=== PATIENT | male | born 1960 | race Caucasian/White ===

== ENCOUNTER 2017-11-01 11:12 | Day surgery (SDC) | payer OTHER ==
[~2017-11-01 11:12] MED LIST: Lactated Ringers 1,000 ML IV SCH; Lidocaine 2% 5 ML SDV ONE; Midazolam 1 MG/ML 2 ML SDV ONE; Ondansetron 4 MG/2 ML SDV ONE; Propofol 200 MG/20 ML SDV ONE; ceFAZolin 2 GM in Premix Bag 1 BAG IV ONE; fentaNYL 100 MCG/2 ML SDV ONE
--- NOTE | 2017-11-01 11:39 | PCM.PREANE ---
Preanesthetic Assessment - Anesthesia/Transfusion/Family Hx Anesthesia History: Prior Anesthesia Without Reaction Family History of Anesthesia Reaction: No Transfusion History: No Prior Transfusion(s) - Review of Systems General: No Symptoms Pulmonary: No Symptoms Cardiovascular: No Symptoms Gastrointestinal: No Symptoms Neurological: No Symptoms Other: Reports: None - Physical Assessment NPO Status Date: 10/31/17 O2 Sat by Pulse Oximetry: 95 Respiratory Rate: 16 Vital Signs: Last Vital Signs Temp 36.5 C 11/01/17 11:29 Pulse 62 11/01/17 11:29 Resp 16 11/01/17 11:29 BP 127/91 H 11/01/17 11:29 Pulse Ox 95 11/01/17 11:29 Height: 1.88 m Weight: 111.13 kg ASA Class: 2 Mental Status: Alert & Oriented x3 Airway Class: Mallampati = 1 Dentition: Reports: Partial ROM/Head Extension: Full Lungs: Clear to Auscultation, Normal Respiratory Effort Cardiovascular: Regular Rate, Regular Rhythm - Allergies Allergies/Adverse Reactions: Allergies Allergy/AdvReac Type Severity Reaction Status Date / Time No Known Allergies Allergy Verified 10/29/17 14:04 - Anesthesia Plan Pre-Op Medication Ordered: None - Acknowledgements Anesthesia Type Planned: MAC Pt an Appropriate Candidate for the Planned Anesthesia: Yes Alternatives and Risks of Anesthesia Discussed w Pt/Guardian: Yes Pt/Guardian Understands and Agrees with Anesthesia Plan: Yes Additional Comments: PMH: on stevie;ofen for knee spasms, Lipoma is on posterior scalp PLAN: if MAC - keep FIO2 at or < 30% to reduce fire risk. PreAnesthesia Questionnaire HEENT History: Reports: Other (See Below) Other HEENT History: wears glasses Cardiovascular History: Reports: None Respiratory History: Reports: None Gastrointestinal History: Reports: None Genitourinary History: Reports: None Musculoskeletal History: Reports: Arthritis, Back Pain, Chronic, Fracture Other Musculoskeletal History: hx of fx left wrist and ankles Neurological History: Reports: Concussion Psychiatric History: Reports: None Endocrine/Metabolic History: Reports: Obesity/BMI 30+ Hematologic History: Reports: None Immunologic History: Reports: None Oncologic (Cancer) History: Reports: None Dermatologic History: Reports: None - Past Surgical History Head Surgeries/Procedures: Reports: None - SUBSTANCE USE Smoking Status *Q: Never Smoker Recreational Drug Use History: No - HOME MEDS Home Medications: Home Meds Baclofen 20 mg PO BID 10/29/17 [History] Diclofenac Sodium [Voltaren] 50 mg PO TID 10/29/17 [History] - CURRENT (IN HOUSE) MEDS Current Meds: Current Medications Lactated Ringer's (Ringers, Lactated) 1,000 mls @ 125 mls/hr IV ASDIRECTED AKBAR Last Admin: 11/01/17 11:34 Dose: 125 mls/hr Discontinued Medications Fentanyl (Sublimaze) Confirm Administered Dose 100 mcg .ROUTE .STK-MED ONE Stop: 11/01/17 10:38 Cefazolin Sodium/Dextrose 2 gm (/ Premix) 50 mls @ 100 mls/hr IV ONETIME ONE Stop: 11/01/17 05:29 Lidocaine (Xylocaine-Mpf 2%) Confirm Administered Dose 5 ml .ROUTE .STK-MED ONE Stop: 11/01/17 10:37 Midazolam HCl (Versed 1 Mg/Ml) Confirm Administered Dose 2 mg .ROUTE .STK-MED ONE Stop: 11/01/17 10:37 Ondansetron HCl (Zofran) Confirm Administered Dose 4 mg .ROUTE .STK-MED ONE Stop: 11/01/17 10:37 Propofol (Diprivan 20 Ml) Confirm Administered Dose 200 mg .ROUTE .STK-MED ONE Stop: 11/01/17 10:37
[2017-11-01] MEDS ORDERED: Bupivacaine 25%/EPINEPHrine/PF 30 ML ONE (11:57)
[2017-11-01] MEDS ORDERED: Acetaminophen/oxyCODONE 325-5 MG Tab PO PRN (11:58)
[2017-11-01] MEDS ORDERED: Sodium Chloride 0.9% 20 ML ONE (12:14)
[2017-11-01] MEDS ORDERED: ceFAZolin 1 GM Vial ONE (12:14)
[2017-11-01] MEDS ORDERED: Glycopyrrolate 0.2 MG/ML SDV ONE ×2 (12:25→12:34)
[2017-11-01] MEDS ORDERED: ePHEDrine 50 MG/ML SDV ONE (12:26)
[2017-11-01] MEDS ORDERED: Propofol 200 MG/20 ML SDV ONE (12:34)
--- NOTE | 2017-11-01 12:59 | PCM.OPNOTE ---
- General Post-Op/Procedure Note Date of Surgery/Procedure: 11/01/17 Operative Procedure(s): excisional biopsy head mass Findings: lipomer, excised at back of head; [id number] Pre Op Diagnosis: head mass Post-Op Diagnosis: Same Anesthesia Technique: Local, MAC Primary Surgeon: Hood Mansfield Pathology: head mass Complications: None Condition: Good
--- NOTE | 2017-11-01 13:48 | PCM.POSTAN ---
POST ANESTHESIA ASSESSMENT - MENTAL STATUS Mental Status: Alert, Oriented - VITAL SIGNS SaO2: 92 (Rm air) - RESPIRATORY Respiratory Status: Respiratory Rate WNL, Airway Patent, O2 Saturation Stable - CARDIOVASCULAR CV Status: Pulse Rate WNL, Blood Pressure Stable - GASTROINTESTINAL GI Status: No Symptoms - POST OP HYDRATION Hydration Status: Adequate & Stable
--- NOTE | 2017-11-01 14:19 | PCM48HPAN ---
Post Anesthesia Note - EVALUATION WITHIN 48HRS OF ANESTHETIC Vital Signs in Normal Range: Yes Patient Participated in Evaluation: Yes Respiratory Function Stable: Yes Airway Patent: Yes Cardiovascular Function Stable: Yes Hydration Status Stable: Yes Pain Control Satisfactory: Yes Nausea and Vomiting Control Satisfactory: Yes Mental Status Recovered: Yes Resp Rate: 14
--- NOTE | 2017-11-01 14:47 | OR ---
SURGEON: Hood Mansfield MD DATE OF PROCEDURE: 11/01/2017 PREOPERATIVE DIAGNOSIS: Scalp mass. POSTOPERATIVE DIAGNOSIS: Scalp mass. PROCEDURE PERFORMED: Excisional biopsy. COMPLICATIONS: None. FINDINGS: A well-encapsulated lipoma. PROCEDURE IN DETAIL: The patient was taken to operating room, placed in the supine position, and then subsequent repositioned into right decubitus position, right side down and left side up and the patient was then given a mild general sedation and the scalp area has been shaved. The mass is right just above the neck base and right in the middle of the posterior part of the head and local anesthetic infiltrated and using a skin scalpel, a fish-mouth incision over the mass was made including the skin and the whole thing was excised and sent for pathology as a lipoma, well encapsulated. Skin incision was transverse, 7.5 cm. Good hemostasis achieved by use of electrocautery. Wound was closed with 3-0 running Ethilon simple interrupted 4-0 appropriate dressing. Patient was awaken and transferred to recovery room in hemodynamically stable condition. The patient tolerated the procedure well. There were no intraoperative complications. MARQUES / CARRINGTON /[id number] SHELDON
--- NOTE | 2017-11-14 14:11 | OR ---
SURGEON: Hood Mansfield MD DATE OF PROCEDURE: 11/01/2017 ADDENDUM: The mass excision is 8 x 2 cm while the skin incision is similar 8 x 2.5 cm. MARQUES / CARRINGTON /[id number]
== END 2017-11-01 15:32 | disposition home or self-care (01) ==
LOC: MW.SDS 11:12
PROVIDERS: ATTEND Surgery
DX: D17.0 Benign lipomatous neoplasm of skin and subcutaneous tissue of head, face and neck (principal); E66.9 Obesity, unspecified; Z68.31 Body mass index [BMI] 31.0-31.9, adult; M19.90 Unspecified osteoarthritis, unspecified site; Z79.899 Other long term (current) drug therapy
CPT/HCPCS: 11426; 88304; A9270; J0690; J2250; J2405; J2704; J3010; J3490; J7120; 00300

== ENCOUNTER 2019-12-19 15:27 | Inpatient (IN) | payer OTHER ==
[2019-12-19] MEDS ORDERED: Sodium Chloride 0.9% 10 ML Syringe FLUSH PRN (16:00)
--- NOTE | 2019-12-19 16:14 | EDM.PDOC ---
ED HPI GENERAL MEDICAL PROBLEM - General Chief Complaint: Cardiovascular Problem Stated Complaint: SHORTNESS OF BREATH Time Seen by Provider: 12/19/19 15:50 Source of Information: Reports: Patient History Limitations: Reports: No Limitations - History of Present Illness INITIAL COMMENTS - FREE TEXT/NARRATIVE: HISTORY AND PHYSICAL: History of present illness: Patient is a 59-year-old male who presents to the emergency room with complaints of fevers, chills, shortness of breath and cough x2 days. He also has concerns of a "infection on my penis". States he has pain to the meatus of his penis with a large sore, denies any discharge or drainage. He had some irritation to the bilateral groin as well, which he has been using OTC cream without relief. Patient denies any headache, change in vision, syncope or near syncope. Denies any chest pain, back pain, abdominal pain, nausea, vomiting, diarrhea, constipation or dysuria. Has not noted any blood in urine or stool. Patient has been eating and drinking appropriately. Review of systems: As per history of present illness and below otherwise all systems reviewed and negative. Past medical history: As per history of present illness and as reviewed below otherwise noncontributory. Surgical history: As per history of present illness and as reviewed below otherwise noncontributory. Social history: See social history for further information Family history: As per history of present illness and as reviewed below otherwise noncontributory. Physical exam: General: Well developed and well nourished. Alert and orientated x 3. Nontoxic in appearance and in no acute distress. Vital signs are stable and have been reviewed by me. Nursing notes were reviewed. HEENT: Atraumatic, normocephalic, pupils equal and reactive bilaterally, negative for conjunctival pallor or scleral icterus, mucous membranes moist, TMs normal bilaterally, throat clear, neck supple, nontender, trachea midline. No drooling or trismus noted. No meningeal signs. No hot potato voice noted. Lungs: Clear to auscultation, breath sounds equal bilaterally, chest nontender. Normal work of breathing, no accessory muscles used. Heart: S1S2, regular rate and rhythm without overt murmur Abdomen: Soft, nondistended, nontender. Negative for masses or hepatosplenomegaly. Negative for costovertebral tenderness. Pelvis: Stable nontender. Genitourinary: This was done with consent and a kaiako kura kaupapa maori at the bedside. + Circumcised. The meatus appears inflamed and painful to touch. Approx 5 mm area of localized redness (non-rasised) to top of meatus. Skin: See above. Remaining skin is intact, warm, dry. No other lesions or rashes noted. Hematologic: No petechiae or purpra. Mucosa appropriate color and normal nail bed color and refill. Extremities: Atraumatic, moves all extremities per self without difficulty or deficits, negative for cords or calf pain. Neurovascular unremarkable. Neuro: Awake, alert, oriented. Cranial nerves II through XII unremarkable. Cerebellum unremarkable. Motor and sensory unremarkable throughout. Exam nonfocal. Psychiatric: Mood and affect are appropriate. Normal thought process. Answering questions appropriately. Notes: Increased soft tissue density in the right peritracheal region. The lungs demonstrate mild patchy opacity at the right lung base which could be due to atelectasis or infection. Radiology does consider a CT of the chest for further evaluation of those findings. I did talk with Dr. Estes about this patient. Will admit for observation. We will do a CT of the neck and chest due to the x- ray report. CT shows multiple patchy round areas of groundglass infiltrates consistent with COVID-19 infection most prominent in the lower lobes bilaterally. No sign of any lymphadenopathy or pleural effusion. Diagnostics: CBC, CMP, COVID, Lactate, BC x 2, CXR, D.Dimer, Therapeutics: IV fluids, Tylenol, Lotrimin topical Impression: Balanitis COVID- 19 Plan: Observation admission Definitive disposition and diagnosis as appropriate pending reevaluation and review of above. Penis Pain Score (Numeric/FACES): 8 - Related Data Allergies Allergy/AdvReac Type Severity Reaction Status Date / Time No Known Allergies Allergy Verified 12/19/19 15:54 Home Meds: Home Meds . [No Known Home Meds] 12/19/19 [History] Past Medical History HEENT History: Reports: Other (See Below) Other HEENT History: wears glasses Cardiovascular History: Reports: None Respiratory History: Reports: None Gastrointestinal History: Reports: None Genitourinary History: Reports: None Musculoskeletal History: Reports: Arthritis, Back Pain, Chronic, Fracture Other Musculoskeletal History: hx of fx left wrist and ankles Neurological History: Reports: Concussion Psychiatric History: Reports: None Endocrine/Metabolic History: Reports: Obesity/BMI 30+ Hematologic History: Reports: None Immunologic History: Reports: None Oncologic (Cancer) History: Reports: None Dermatologic History: Reports: None - Infectious Disease History Infectious Disease History: Reports: None - Past Surgical History Head Surgeries/Procedures: Reports: None Social & Family History - Family History Family Medical History: Noncontributory - Tobacco Use Tobacco Use Status *Q: Never Tobacco User - Caffeine Use Caffeine Use: Reports: Coffee ED ROS GENERAL - Review of Systems Review Of Systems: Comprehensive ROS is negative, except as noted in HPI. ED EXAM, GENERAL - Physical Exam Exam: See Below (See dictation) Course - Vital Signs Last Recorded V/S: Last Vital Signs Temp 96.6 F L 12/19/19 18:12 Pulse 61 12/19/19 18:12 Resp 16 12/19/19 18:12 BP 129/83 12/19/19 18:12 Pulse Ox 94 L 12/19/19 18:12 - Orders/Labs/Meds Orders: Active Orders 24 hr Category Date Time Status Admission Status [Patient Status] [ADT] Stat ADT 12/19/19 20:40 Ordered Communication Order [RC] BID Care 12/19/19 19:00 Active CHLAMYDIA AND GONORRHEA BY TMA Stat Lab 12/19/19 18:06 Received CULTURE BLOOD [BC] Stat Lab 12/19/19 16:14 Received CULTURE BLOOD [BC] Stat Lab 12/19/19 16:24 Received Clotrimazole [Lotrimin AF 1% Crm] Med 12/19/19 21:00 Active See Dose Instructions TOP BID Sodium Chloride 0.9% [Saline Flush] Med 12/19/19 16:00 Active 10 ml FLUSH ASDIRECTED PRN Sodium Chloride 0.9% [Saline Flush] Med 12/19/19 16:00 Active 2.5 ml FLUSH ASDIRECTED PRN Blood Culture x2 Reflex Set [OM.PC] Stat Oth 12/19/19 16:00 Ordered Saline Lock Insert [OM.PC] Stat Oth 12/19/19 16:00 Ordered Medication Orders Clotrimazole (Lotrimin Af 1% Crm) 0 gm TOP BID AKBAR Sodium Chloride (Saline Flush) 10 ml FLUSH ASDIRECTED PRN PRN Reason: Keep Vein Open Last Admin: 12/19/19 16:33 Dose: 10 ml Documented by: [email or web address] Sodium Chloride (Saline Flush) 2.5 ml FLUSH ASDIRECTED PRN PRN Reason: Keep Vein Open Last Admin: 12/19/19 16:33 Dose: 2.5 ml Documented by: [email or web address] Labs: Laboratory Tests 12/19/19 12/19/19 12/19/19 Range/Units 15:41 15:41 15:41 WBC 3.71 L (4.0-11.0) K/uL RBC 5.17 (4.50-5.90) M/uL Hgb 16.7 (13.0-17.0) g/dL Hct 48.2 (38.0-50.0) % MCV 93.2 (80.0-98.0) fL MCH 32.3 H (27.0-32.0) pg MCHC 34.6 (31.0-37.0) g/dL RDW Std Deviation 46.1 (28.0-62.0) fl RDW Coeff of Timothy 13 (11.0-15.0) % Plt Count 96 L (150-400) K/uL MPV 11.90 (7.40-12.00) fL Neut % (Auto) 56.2 (48.0-80.0) % Lymph % (Auto) 33.2 (16.0-40.0) % Starr % (Auto) 10.0 (0.0-15.0) % Eos % (Auto) 0.3 (0.0-7.0) % Baso % (Auto) 0.3 (0.0-1.5) % Neut # (Auto) 2.1 (1.4-5.7) K/uL Lymph # (Auto) 1.2 (0.6-2.4) K/uL Starr # (Auto) 0.4 (0.0-0.8) K/uL Eos # (Auto) 0.0 (0.0-0.7) K/uL Baso # (Auto) 0.0 (0.0-0.1) K/uL Nucleated RBC % 0.0 /100WBC Nucleated RBCs # 0 K/uL D-Dimer, Quantitative (0.0-0.50) mg/L FEU Lactate 1.0 (0.20-2.00) mmol/L Sodium 138 (136-148) mmol/L Potassium 3.7 (3.5-5.1) mmol/L Chloride 100 (98-107) mmol/L Carbon Dioxide 26.1 (21.0-32.0) mmol/L BUN 15 (7.0-18.0) mg/dL Creatinine 1.2 (0.8-1.3) mg/dL Est Cr Clr Drug Dosing 75.16 mL/min Estimated GFR (MDRD) > 60.0 ml/min Glucose 88 (74-106) mg/dL Calcium 8.7 (8.5-10.1) mg/dL Total Bilirubin 1.1 H (0.2-1.0) mg/dL AST 41 H (15-37) IU/L ALT 107 H (14-63) IU/L Alkaline Phosphatase 62 (46-116) U/L Total Protein 8.1 (6.4-8.2) g/dL Albumin 4.2 (3.4-5.0) g/dL Globulin 3.9 (2.6-4.0) g/dL Albumin/Globulin Ratio 1.1 (0.9-1.6) TSH 3rd Generation 1.54 (0.36-3.74) uIU/mL Urine Color Urine Appearance Urine pH (5.0-8.0) Ur Specific Dixon (1.001-1.035) Urine Protein (NEGATIVE) mg/dL Urine Glucose (UA) (NEGATIVE) mg/dL Urine Ketones (NEGATIVE) mg/dL Urine Occult Blood (NEGATIVE) Urine Nitrite (NEGATIVE) Urine Bilirubin (NEGATIVE) Urine Urobilinogen (<2.0) EU/dL Ur Leukocyte Esterase (NEGATIVE) Urine RBC (0-2/HPF) Urine WBC (0-5/HPF) Ur Epithelial Cells (NONE-FEW) Urine Bacteria (NEGATIVE) SARS-CoV-2 RNA (EMILY) (NEGATIVE) 12/19/19 12/19/19 12/19/19 Range/Units 15:41 16:42 18:06 WBC (4.0-11.0) K/uL RBC (4.50-5.90) M/uL Hgb (13.0-17.0) g/dL Hct (38.0-50.0) % MCV (80.0-98.0) fL MCH (27.0-32.0) pg MCHC (31.0-37.0) g/dL RDW Std Deviation (28.0-62.0) fl RDW Coeff of Timothy (11.0-15.0) % Plt Count (150-400) K/uL MPV (7.40-12.00) fL Neut % (Auto) (48.0-80.0) % Lymph % (Auto) (16.0-40.0) % Starr % (Auto) (0.0-15.0) % Eos % (Auto) (0.0-7.0) % Baso % (Auto) (0.0-1.5) % Neut # (Auto) (1.4-5.7) K/uL Lymph # (Auto) (0.6-2.4) K/uL Starr # (Auto) (0.0-0.8) K/uL Eos # (Auto) (0.0-0.7) K/uL Baso # (Auto) (0.0-0.1) K/uL Nucleated RBC % /100WBC Nucleated RBCs # K/uL D-Dimer, Quantitative 0.41 (0.0-0.50) mg/L FEU Lactate (0.20-2.00) mmol/L Sodium (136-148) mmol/L Potassium (3.5-5.1) mmol/L Chloride (98-107) mmol/L Carbon Dioxide (21.0-32.0) mmol/L BUN (7.0-18.0) mg/dL Creatinine (0.8-1.3) mg/dL Est Cr Clr Drug Dosing mL/min Estimated GFR (MDRD) ml/min Glucose (74-106) mg/dL Calcium (8.5-10.1) mg/dL Total Bilirubin (0.2-1.0) mg/dL AST (15-37) IU/L ALT (14-63) IU/L Alkaline Phosphatase (46-116) U/L Total Protein (6.4-8.2) g/dL Albumin (3.4-5.0) g/dL Globulin (2.6-4.0) g/dL Albumin/Globulin Ratio (0.9-1.6) TSH 3rd Generation (0.36-3.74) uIU/mL Urine Color YELLOW Urine Appearance HAZY Urine pH 6.0 (5.0-8.0) Ur Specific Dixon 1.025 (1.001-1.035) Urine Protein 30 H (NEGATIVE) mg/dL Urine Glucose (UA) NEGATIVE (NEGATIVE) mg/dL Urine Ketones NEGATIVE (NEGATIVE) mg/dL Urine Occult Blood TRACE-INTACT H (NEGATIVE) Urine Nitrite NEGATIVE (NEGATIVE) Urine Bilirubin NEGATIVE (NEGATIVE) Urine Urobilinogen 4.0 H (<2.0) EU/dL Ur Leukocyte Esterase NEGATIVE (NEGATIVE) Urine RBC 0-1 (0-2/HPF) Urine WBC 0-1 (0-5/HPF) Ur Epithelial Cells RARE (NONE-FEW) Urine Bacteria RARE (NEGATIVE) SARS-CoV-2 RNA (EMILY) POSITIVE H (NEGATIVE) Meds: Medications Generic Name Dose Route Start Last Admin Trade Name Freq PRN Reason Stop Dose Admin Clotrimazole 0 gm 12/19/19 21:00 Lotrimin Af 1% Crm TOP BID AKBAR Sodium Chloride 10 ml 12/19/19 16:00 12/19/19 16:33 Saline Flush FLUSH 10 ml ASDIRECTED PRN Administration Keep Vein Open Sodium Chloride 2.5 ml 12/19/19 16:00 12/19/19 16:33 Saline Flush FLUSH 2.5 ml ASDIRECTED PRN Administration Keep Vein Open Discontinued Medications Generic Name Dose Route Start Last Admin Trade Name Freq PRN Reason Stop Dose Admin Acetaminophen 1,000 mg 12/19/19 16:35 12/19/19 16:39 Tylenol Extra Strength PO 12/19/19 16:36 1,000 mg ONETIME ONE Administration Betamethasone/Clotrimazole 1 gm 12/19/19 17:54 12/19/19 18:08 Lotrisone TOP 12/19/19 17:55 1 gm NOW STA Administration Clotrimazole 1 gm 12/19/19 17:38 12/19/19 17:53 Lotrimin Af 1% Crm TOP 12/19/19 17:39 Not Given NOW STA Iopamidol 100 ml 12/19/19 19:23 12/19/19 19:24 Isovue Multipack-370 (76%) IVPUSH 12/19/19 19:24 100 ml ONETIME ONE Administration Departure - Departure Time of Disposition: 20:42 Disposition: Refer to Observation Clinical Impression: COVID-19, Balanitis Referrals: PCP,None [Primary Care Provider] - Forms: ED Department Discharge Sepsis Event Note (ED) - Evaluation Sepsis Screening Result: No Definite Risk - Focused Exam Vital Signs: Vital Signs Temp Temp Pulse Resp BP Pulse Ox 12/19/19 18:12 96.6 F L 61 16 129/83 94 L 12/19/19 17:09 100.0 F 12/19/19 15:54 101.1 F H 87 20 147/95 H 95 - My Orders Last 24 Hours: My Active Orders 12/19/19 16:00 Sodium Chloride 0.9% [Saline Flush] 10 ml FLUSH ASDIRECTED PRN Sodium Chloride 0.9% [Saline Flush] 2.5 ml FLUSH ASDIRECTED PRN Blood Culture x2 Reflex Set [OM.PC] Stat Saline Lock Insert [OM.PC] Stat 12/19/19 16:14 CULTURE BLOOD [BC] Stat 12/19/19 16:24 CULTURE BLOOD [BC] Stat 12/19/19 18:06 CHLAMYDIA AND GONORRHEA BY TMA Stat 12/19/19 20:40 Admission Status [Patient Status] [ADT] Stat - Assessment/Plan Last 24 Hours: My Active Orders 12/19/19 16:00 Sodium Chloride 0.9% [Saline Flush] 10 ml FLUSH ASDIRECTED PRN Sodium Chloride 0.9% [Saline Flush] 2.5 ml FLUSH ASDIRECTED PRN Blood Culture x2 Reflex Set [OM.PC] Stat Saline Lock Insert [OM.PC] Stat 12/19/19 16:14 CULTURE BLOOD [BC] Stat 12/19/19 16:24 CULTURE BLOOD [BC] Stat 12/19/19 18:06 CHLAMYDIA AND GONORRHEA BY TMA Stat 12/19/19 20:40 Admission Status [Patient Status] [ADT] Stat
[2019-12-19] MEDS: Sodium Chloride 0.9% 2.5 ML Syringe FLUSH PRN ×2 (16:33→22:44)
[2019-12-19] MEDS ORDERED: Acetaminophen 500 MG Tab PO ONE (16:35)
[2019-12-19 16:39] LABS: BLOOD UREA NITROGEN,BUN 15 mg/dL (7.0-18.0); CARBON DIOXIDE,CO2 26.1 mmol/L (21.0-32.0); CHLORIDE,CL 100 mmol/L (98-107); GLUCOSE RANDOM 88 mg/dL (74-106); POTASSIUM,K 3.7 mmol/L (3.5-5.1); SODIUM,NA 138 mmol/L (136-148)
[2019-12-19] MEDS ORDERED: Clotrimazole 1% Crm 30 GM Tube TOP STA (17:38)
--- NOTE | 2019-12-19 17:45 | CR ---
Indication: Shortness of breath and cough Technique: Chest 1 view Comparison: None Findings/Impression: Cardiac size within normal limits. Increased soft tissue density in the right paratracheal region. The lungs demonstrate minimal patchy opacity at the right lung base which may be due to atelectasis or infection. There are old appearing left-sided rib fractures. No acute osseous abnormality. Consider chest CT for further evaluation of right paratracheal soft tissue density and opacity at the right lung base. Dictated by Alicia Arriaza MD @ Dec 19 2019 5:43PM Signed by Dr. Alicia Arriaza @ Dec 19 2019 5:43PM
[2019-12-19] MEDS ORDERED: Betamethasone Dipropionate/Clotrimazole 0.05-1% Crm 15 GM Tube TOP STA (17:54)
[2019-12-19] MEDS ORDERED: Iopamidol 755 MG/ML 500 ML Multipack Bottle IVPUSH ONE (19:23)
--- NOTE | 2019-12-19 20:14 | CT ---
INDICATION: Right lung capacity. Tracheal swelling. Positive COVID-19. COMPARISON: Chest radiograph from earlier today at 1626 hours. TECHNIQUE: : CT examination of the chest was performed with the uneventful intravenous administration of 100 cc of Isovue 370 while 3 mm thick axial sections were obtained from above the apices of the lungs to the lung bases. Please note that all CT scans at this facility use dose modulation, iterative reconstruction, and/or weight-based dosing when appropriate to reduce radiation dose to as low as reasonably achievable. FINDINGS: : There are multiple patchy rounded areas of ground-glass pulmonary infiltrate in the lower lobes. There is milder involvement of the posterior aspect of the right upper lobe adjacent to the major fissure. There is mild involvement of the posterior aspect of the left upper lobe also adjacent to the major fissure, with mild involvement in the anterior superior upper lobe. The findings are typical for COVID-19 infection. Incidental note is made of an azygos fissure of no clinical concern. There is excellent enhancement of the pulmonary arteries, with no sign of pulmonary embolism. There is no sign of mediastinal or hilar mass or adenopathy. There is mild LAD coronary calcification. The heart is otherwise normal in appearance for the patient`s age, as are the aorta and other ascending great vessels. There is no sign of supraclavicular or axillary mass or adenopathy. The visualized superior liver, spleen, pancreas, kidneys, and adrenals are normal in appearance. There are several old, healed fractures of the left lateral lower ribs. The osseous structures are otherwise normal in appearance for the patient`s age. IMPRESSION: Multiple patchy rounded areas of ground-glass infiltrates consistent with COVID-19 infection, with most prominent involvement in the lower lobes bilaterally. No sign of any lymphadenopathy or pleural effusion. Please note that all CT scans at this facility use dose modulation, iterative reconstruction, and/or weight-based dosing when appropriate to reduce radiation dose to as low as reasonably achievable. Dictated by Ryan Mena MD @ Dec 19 2019 8:05PM Signed by Dr. Ryan Mena @ Dec 19 2019 8:13PM
--- NOTE | 2019-12-19 20:22 | CT ---
INDICATION: Tracheal soft tissue swelling. Right lung opacity. Positive COVID-19. COMPARISON: None available TECHNIQUE: CT examination of the neck is performed using spiral technique during the uneventful intravenous administration of Isovue 370 as part of the accompanying CT of the chest. 3 mm thick axial sections were made along with coronal and sagittal sections. Please note that all CT scans at this facility use dose modulation, iterative reconstruction, and/or weight-based dosing when appropriate to reduce radiation dose to as low as reasonably achievable. FINDINGS: The airway structures are normal in appearance. There is no sign laryngeal or tracheal swelling. There is no sign of cervical mass or adenopathy on today`s study. The salivary glands are normal in appearance. The visualized posterior fossa, mastoids, skull base, and orbits are normal in appearance. The paranasal sinuses are clear. The great vessels are unremarkable. The thyroid gland is normal in appearance. In the visualized upper chest, there are peripheral patchy rounded infiltrates located in the lateral aspect of the left upper lobe adjacent to the major fissure and in the anterior superior left upper lobe. Additional infiltrates are seen in the posterior portions of the mid-upper lungs bilaterally on the most inferior images. These infiltrates are consistent with COVID-19 infection as described on the accompanying CT of the chest. The visualized upper mediastinum is normal in appearance. There is prominent C6-7 disc degenerative disease with moderate diffuse disc bulging and posterior osteophytic ridging which could result in mild spinal stenosis. There is moderate right and mild left foraminal stenosis from uncovertebral joint hypertrophy. IMPRESSION: No sign of any airway abnormality. No sign of laryngeal or tracheal edema. Patchy rounded infiltrates in the periphery of the left upper lobe and in the superior portions of the mid-upper lungs, consistent with COVID-19 infection, as described on the accompanying CT of the chest. Prominent C6-7 disc degenerative disease with moderate diffuse disc bulging and posterior osteophytic ridging which may result in mild spinal stenosis. Please note that all CT scans at this facility use dose modulation, iterative reconstruction, and/or weight-based dosing when appropriate to reduce radiation dose to as low as reasonably achievable. Dictated by Ryan Mena MD @ Dec 19 2019 8:09PM Signed by Dr. Ryan Mena @ Dec 19 2019 8:20PM
[2019-12-19] MEDS ORDERED: Clotrimazole 1% Crm 30 GM Tube TOP SCH (21:00)
[2019-12-19] MEDS ORDERED: Albuterol/Ipratropium 3.0-0.5 MG/3 ML Neb Soln NEB PRN (21:08)
[2019-12-19] MEDS ORDERED: Albuterol/Ipratropium 4 GM Inhalation Spray INH PRN (21:14)
[2019-12-19] MEDS ORDERED: Lactated Ringers 1,000 ML IV SCH (21:15)
--- NOTE | 2019-12-19 21:17 | PCM.HP.2 ---
H&P History of Present Illness - General Date of Service: 12/19/19 Admit Problem/Dx: Admission Diagnosis/Problem Admission Diagnosis/Problem Viral respiratory infection - History of Present Illness Initial Comments - Free Text/Narative: Patient is a 59-year-old male with PMH of possible early Parkinson who presents to the emergency room with complaints of fevers, chills, shortness of breath and cough x2 days. He feels extremely weak. Patient also states that he has a "infection on penis". States he has pain and itching at the head of his penis but denied any denies any discharge or drainage. He had some irritation to the bilateral groin as well, which he has been using OTC cream without relief. Patient denies any headache, change in vision, syncope or near syncope. Denies any chest pain, back pain, abdominal pain, nausea, vomiting, diarrhea, constipation or dysuria. Has not noted any blood in urine or stool. Patient has been eating and drinking appropriately. He briscoe sa fever of 38.4, CXR showed soft tissue density in the right paratracheal region, with minimal opacity in right lung base. CT chest was done which showed patchy opacity in lungs consistent with COVID_19. Covid test was positive, patient was maintain his oxygen magdalena on RA,, but felt sob on exertion,felt very weak to go home. Patient was admitted for further management. 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 Penis Pain Score (Numeric/FACES): 8 - Related Data Allergies/Adverse Reactions: Allergies Allergy/AdvReac Type Severity Reaction Status Date / Time No Known Allergies Allergy Verified 12/19/19 15:54 Home Medications: Home Meds . [No Known Home Meds] 12/19/19 [History] Past Medical History HEENT History: Reports: Other (See Below) Other HEENT History: wears glasses Cardiovascular History: Reports: None Respiratory History: Reports: None Gastrointestinal History: Reports: None Genitourinary History: Reports: None Musculoskeletal History: Reports: Arthritis, Back Pain, Chronic, Fracture Other Musculoskeletal History: hx of fx left wrist and ankles Neurological History: Reports: Concussion Psychiatric History: Reports: None Endocrine/Metabolic History: Reports: Obesity/BMI 30+ Hematologic History: Reports: None Immunologic History: Reports: None Oncologic (Cancer) History: Reports: None Dermatologic History: Reports: None - Infectious Disease History Infectious Disease History: Reports: None - Past Surgical History Head Surgeries/Procedures: Reports: None Social & Family History - Family History Family Medical History: Noncontributory - Tobacco Use Tobacco Use Status *Q: Never Tobacco User - Caffeine Use Caffeine Use: Reports: Coffee H&P Review of Systems - Review of Systems: Review Of Systems: See Below General: Reports: Fever, Malaise, Weakness, Fatigue. Denies: Chills Pulmonary: Reports: Shortness of Breath, Cough, Sputum. Denies: Wheezing, Pleuritic Chest Pain Cardiovascular: Reports: Dyspnea on Exertion. Denies: Chest Pain, Palpitations, Orthopnea, PND Gastrointestinal: Denies: Abdominal Pain, Anorexia, Black Stool, Bloody Stool, Constipation, Nausea, Vomiting Genitourinary: Denies: Dysuria, Frequency Musculoskeletal: Denies: Neck Pain, Shoulder Pain, Arm Pain Skin: Denies: Cyanosis, Jaundice, Mottled, Pallor Psychiatric: Denies: Confusion, Depression, Mood Lability Neurological: Denies: Confusion, Dizziness, Headache Exam - Exam Exam: See Below - Vital Signs Vital Signs: Last Vital Signs Temp 35.9 C L 12/19/19 18:12 Pulse 68 12/19/19 20:44 Resp 22 H 12/19/19 20:44 BP 118/77 12/19/19 20:44 Pulse Ox 94 L 12/19/19 20:44 Weight: 113.398 kg - Exam General: Alert, Oriented Neck: Supple, Trachea Midline Lungs: Clear to Auscultation, Normal Respiratory Effort Cardiovascular: Regular Rate, Regular Rhythm GI/Abdominal Exam: Normal Bowel Sounds, Soft, Non-Tender (Male) Exam: Circumcised, Other (erythema of the glans penis). No: Testicular Tenderness (L), Testicular Tenderness (R), Urethral Discharge - Patient Data Lab Results Last 24 hrs: Laboratory Results - last 24 hr 12/19/19 12/19/19 12/19/19 Range/Units 15:41 15:41 15:41 WBC 3.71 L (4.0-11.0) K/uL RBC 5.17 (4.50-5.90) M/uL Hgb 16.7 (13.0-17.0) g/dL Hct 48.2 (38.0-50.0) % MCV 93.2 (80.0-98.0) fL MCH 32.3 H (27.0-32.0) pg MCHC 34.6 (31.0-37.0) g/dL RDW Std Deviation 46.1 (28.0-62.0) fl RDW Coeff of Timothy 13 (11.0-15.0) % Plt Count 96 L (150-400) K/uL MPV 11.90 (7.40-12.00) fL Neut % (Auto) 56.2 (48.0-80.0) % Lymph % (Auto) 33.2 (16.0-40.0) % [place] % (Auto) 10.0 (0.0-15.0) % Eos % (Auto) 0.3 (0.0-7.0) % Baso % (Auto) 0.3 (0.0-1.5) % Neut # (Auto) 2.1 (1.4-5.7) K/uL Lymph # (Auto) 1.2 (0.6-2.4) K/uL [place] # (Auto) 0.4 (0.0-0.8) K/uL Eos # (Auto) 0.0 (0.0-0.7) K/uL Baso # (Auto) 0.0 (0.0-0.1) K/uL Nucleated RBC % 0.0 /100WBC Nucleated RBCs # 0 K/uL D-Dimer, Quantitative (0.0-0.50) mg/L FEU Lactate 1.0 (0.20-2.00) mmol/L Sodium 138 (136-148) mmol/L Potassium 3.7 (3.5-5.1) mmol/L Chloride 100 (98-107) mmol/L Carbon Dioxide 26.1 (21.0-32.0) mmol/L BUN 15 (7.0-18.0) mg/dL Creatinine 1.2 (0.8-1.3) mg/dL Est Cr Clr Drug Dosing 75.16 mL/min Estimated GFR (MDRD) > 60.0 ml/min Glucose 88 (74-106) mg/dL Calcium 8.7 (8.5-10.1) mg/dL Total Bilirubin 1.1 H (0.2-1.0) mg/dL AST 41 H (15-37) IU/L ALT 107 H (14-63) IU/L Alkaline Phosphatase 62 (46-116) U/L Total Protein 8.1 (6.4-8.2) g/dL Albumin 4.2 (3.4-5.0) g/dL Globulin 3.9 (2.6-4.0) g/dL Albumin/Globulin Ratio 1.1 (0.9-1.6) TSH 3rd Generation 1.54 (0.36-3.74) uIU/mL Urine Color Urine Appearance Urine pH (5.0-8.0) Ur Specific [place] (1.001-1.035) Urine Protein (NEGATIVE) mg/dL Urine Glucose (UA) (NEGATIVE) mg/dL Urine Ketones (NEGATIVE) mg/dL Urine Occult Blood (NEGATIVE) Urine Nitrite (NEGATIVE) Urine Bilirubin (NEGATIVE) Urine Urobilinogen (<2.0) EU/dL Ur Leukocyte Esterase (NEGATIVE) Urine RBC (0-2/HPF) Urine WBC (0-5/HPF) Ur Epithelial Cells (NONE-FEW) Urine Bacteria (NEGATIVE) SARS-CoV-2 RNA (EMILY) (NEGATIVE) 12/19/19 12/19/19 12/19/19 Range/Units 15:41 16:42 18:06 WBC (4.0-11.0) K/uL RBC (4.50-5.90) M/uL Hgb (13.0-17.0) g/dL Hct (38.0-50.0) % MCV (80.0-98.0) fL MCH (27.0-32.0) pg MCHC (31.0-37.0) g/dL RDW Std Deviation (28.0-62.0) fl RDW Coeff of Timothy (11.0-15.0) % Plt Count (150-400) K/uL MPV (7.40-12.00) fL Neut % (Auto) (48.0-80.0) % Lymph % (Auto) (16.0-40.0) % [place] % (Auto) (0.0-15.0) % Eos % (Auto) (0.0-7.0) % Baso % (Auto) (0.0-1.5) % Neut # (Auto) (1.4-5.7) K/uL Lymph # (Auto) (0.6-2.4) K/uL [place] # (Auto) (0.0-0.8) K/uL Eos # (Auto) (0.0-0.7) K/uL Baso # (Auto) (0.0-0.1) K/uL Nucleated RBC % /100WBC Nucleated RBCs # K/uL D-Dimer, Quantitative 0.41 (0.0-0.50) mg/L FEU Lactate (0.20-2.00) mmol/L Sodium (136-148) mmol/L Potassium (3.5-5.1) mmol/L Chloride (98-107) mmol/L Carbon Dioxide (21.0-32.0) mmol/L BUN (7.0-18.0) mg/dL Creatinine (0.8-1.3) mg/dL Est Cr Clr Drug Dosing mL/min Estimated GFR (MDRD) ml/min Glucose (74-106) mg/dL Calcium (8.5-10.1) mg/dL Total Bilirubin (0.2-1.0) mg/dL AST (15-37) IU/L ALT (14-63) IU/L Alkaline Phosphatase (46-116) U/L Total Protein (6.4-8.2) g/dL Albumin (3.4-5.0) g/dL Globulin (2.6-4.0) g/dL Albumin/Globulin Ratio (0.9-1.6) TSH 3rd Generation (0.36-3.74) uIU/mL Urine Color YELLOW Urine Appearance HAZY Urine pH 6.0 (5.0-8.0) Ur Specific [place] 1.025 (1.001-1.035) Urine Protein 30 H (NEGATIVE) mg/dL Urine Glucose (UA) NEGATIVE (NEGATIVE) mg/dL Urine Ketones NEGATIVE (NEGATIVE) mg/dL Urine Occult Blood TRACE-INTACT H (NEGATIVE) Urine Nitrite NEGATIVE (NEGATIVE) Urine Bilirubin NEGATIVE (NEGATIVE) Urine Urobilinogen 4.0 H (<2.0) EU/dL Ur Leukocyte Esterase NEGATIVE (NEGATIVE) Urine RBC 0-1 (0-2/HPF) Urine WBC 0-1 (0-5/HPF) Ur Epithelial Cells RARE (NONE-FEW) Urine Bacteria RARE (NEGATIVE) SARS-CoV-2 RNA (EMILY) POSITIVE H (NEGATIVE) Result Diagrams: 12/19/19 15:41 12/19/19 15:41 Sepsis Event Note - Evaluation Sepsis Screening Result: No Definite Risk - Focused Exam Vital Signs: Vital Signs Temp Temp Pulse Resp BP Pulse Ox 12/19/19 20:44 68 22 H 118/77 94 L 12/19/19 20:24 63 123/87 93 L 12/19/19 19:44 74 112/57 L 94 L 12/19/19 18:12 35.9 C L 61 16 129/83 94 L 12/19/19 17:09 37.8 C 12/19/19 15:54 38.4 C H 87 20 147/95 H 95 - Problem List (1) Balanitis SNOMED Code(s): 91944462 ICD Code: N48.1 - BALANITIS Status: Acute Current Visit: Yes (2) COVID-19 SNOMED Code(s): 501919827 ICD Code: U07.1 - COVID-19 Status: Acute Current Visit: Yes Problem List Initiated/Reviewed/Updated: Yes Orders Last 24hrs: Active Orders 24 hr Category Date Time Status Admission Status [Patient Status] [ADT] Stat ADT 12/19/19 20:40 Active Ambulate [RC] ASDIRECTED Care 12/19/19 21:08 Active Antiembolic Devices [RC] PER UNIT ROUTINE Care 12/19/19 21:09 Active Communication Order [RC] BID Care 12/19/19 19:00 Active Oxygen Therapy [RC] PRN Care 12/19/19 21:08 Active Pulse Oximetry [RC] PRN Care 12/19/19 21:08 Active RT Aerosol Therapy [RC] ASDIRECTED Care 12/19/19 21:09 Active RT Post Treatment Assessment [RC] Click to Edit Care 12/19/19 21:15 Active RT Pre-Treatment Assessment [RC] Click to Edit Care 12/19/19 21:15 Active VTE/DVT Education [RC] PER UNIT ROUTINE Care 12/19/19 21:08 Active Vital Signs [RC] Q4H Care 12/19/19 21:08 Active Regular Diet [DIET] Diet 12/19/19 Dinner Active CBC WITH AUTO DIFF [HEME] AM Lab 12/20/19 05:11 Ordered CHLAMYDIA AND GONORRHEA BY TMA Stat Lab 12/19/19 18:06 Received CMP [COMPREHENSIVE METABOLIC PN,CMP] [CHEM] AM Lab 12/20/19 05:11 Ordered CULTURE BLOOD [BC] Stat Lab 12/19/19 16:14 Received CULTURE BLOOD [BC] Stat Lab 12/19/19 16:24 Received MAGNESIUM [CHEM] AM Lab 12/20/19 05:11 Ordered PHOSPHORUS [CHEM] AM Lab 12/20/19 05:11 Ordered Albuterol/Ipratropium [Combivent Respimat] Med 12/19/19 21:14 Active See Dose Instructions INH Q4H PRN Clotrimazole [Lotrimin AF 1% Crm] Med 12/19/19 21:00 Active See Dose Instructions TOP BID Lactated Ringers [Ringers, Lactated] 1,000 ml Med 12/19/19 21:15 Active IV ASDIRECTED Sodium Chloride 0.9% [Saline Flush] Med 12/19/19 16:00 Active 10 ml FLUSH ASDIRECTED PRN Sodium Chloride 0.9% [Saline Flush] Med 12/19/19 16:00 Active 2.5 ml FLUSH ASDIRECTED PRN Blood Culture x2 Reflex Set [OM.PC] Stat Oth 12/19/19 16:00 Ordered Saline Lock Insert [OM.PC] Stat Oth 12/19/19 16:00 Ordered Sequential Compression Device [OM.PC] Per Unit Routine Oth 12/19/19 21:08 Ordered Resuscitation Status Routine Resus Stat 12/19/19 21:08 Ordered Medication Orders Albuterol/Ipratropium (Combivent Respimat) 0 gm INH Q4H PRN PRN Reason: Dyspnea Clotrimazole (Lotrimin Af 1% Crm) 0 gm TOP BID AKBAR Lactated Ringer's (Ringers, Lactated) 1,000 mls @ 125 mls/hr IV ASDIRECTED AKBAR Stop: 12/20/19 05:14 Sodium Chloride (Saline Flush) 10 ml FLUSH ASDIRECTED PRN PRN Reason: Keep Vein Open Last Admin: 12/19/19 16:33 Dose: 10 ml Documented by: LILY Sodium Chloride (Saline Flush) 2.5 ml FLUSH ASDIRECTED PRN PRN Reason: Keep Vein Open Last Admin: 12/19/19 16:33 Dose: 2.5 ml Documented by: LILY Assessment/Plan Comment:: 59 y/o M admitted for generalized weakness, SOB COVID positive, not hypoxic for now Oxygen as needed Combivent as needed IV fluids, limit to 1L SCD for dvt ppx check inflammatory markers Patient has consented to remdesivir administration, should he become hypoxic, explained emergency use FDA authorization of Remdesivir. He was explained side effects including hepatitis and anaphylaxis and patient consents to treatment. Fact sheet will be provided if medication is needed trend LFTs PT assessment in AM
[2019-12-19] MEDS ORDERED: LORazepam 2 MG/ML SDV IVPUSH ONE (23:14)
[2019-12-19] MEDS: Acetaminophen 500 MG Tab PO PRN (23:39)
[2019-12-19] MEDS: Enoxaparin 40 MG/0.4 ML Syringe SUBCUT SCH (23:40)
[2019-12-20] MEDS ORDERED: LORazepam 2 MG/ML SDV IVPUSH PRN (04:00)
[2019-12-20 06:21] LABS: BLOOD UREA NITROGEN,BUN 13 mg/dL (7.0-18.0); CARBON DIOXIDE,CO2 22.8 mmol/L (21.0-32.0); CHLORIDE,CL 101 mmol/L (98-107); GLUCOSE RANDOM 93 mg/dL (74-106); POTASSIUM,K 3.9 mmol/L (3.5-5.1); SODIUM,NA 136 mmol/L (136-148)
[2019-12-20] MEDS: Acetaminophen 500 MG Tab PO PRN ×2 (08:39→21:19)
[2019-12-20] MEDS: Betamethasone Dipropionate/Clotrimazole 0.05-1% Crm 15 GM Tube TOP SCH ×2 (09:07→21:25)
[2019-12-20] MEDS: Dexamethasone 4 MG Tab PO SCH (10:51)
--- NOTE | 2019-12-20 12:24 | PCM.PN ---
- General Info Date of Service: 12/20/19 Admission Dx/Problem (Free Text): Admission Diagnosis/Problem Admission Diagnosis/Problem Viral respiratory infection Subjective Update: seen at bedside, states he still feels sob, and extremely fatigued. Functional Status: Reports: Pain Controlled - Review of Systems General: Reports: Weakness, Fatigue, Malaise. Denies: Fever Pulmonary: Reports: Shortness of Breath, Cough, Sputum. Denies: Pleuritic Chest Pain Cardiovascular: Denies: Chest Pain, Palpitations, Dyspnea on Exertion Gastrointestinal: Denies: Abdominal Pain, Constipation, Decreased Appetite Genitourinary: Denies: Dysuria, Frequency, Burning Musculoskeletal: Denies: Neck Pain, Shoulder Pain, Arm Pain - Patient Data Vitals - Most Recent: Last Vital Signs Temp 37.2 C 12/20/19 08:42 Pulse 62 12/20/19 08:42 Resp 22 H 12/20/19 08:42 BP 134/86 12/20/19 08:42 Pulse Ox 94 L 12/20/19 08:42 Weight - Most Recent: 113.398 kg I&O - Last 24 Hours: Intake & Output 12/19/19 12/20/19 12/20/19 22:59 06:59 14:59 Intake Total 1000 Output Total 350 Balance 650 Lab Results Last 24 Hours: Laboratory Results - last 24 hr 12/19/19 12/19/19 12/19/19 Range/Units 15:41 15:41 15:41 WBC 3.71 L (4.0-11.0) K/uL RBC 5.17 (4.50-5.90) M/uL Hgb 16.7 (13.0-17.0) g/dL Hct 48.2 (38.0-50.0) % MCV 93.2 (80.0-98.0) fL MCH 32.3 H (27.0-32.0) pg MCHC 34.6 (31.0-37.0) g/dL RDW Std Deviation 46.1 (28.0-62.0) fl RDW Coeff of Timothy 13 (11.0-15.0) % Plt Count 96 L (150-400) K/uL MPV 11.90 (7.40-12.00) fL Neut % (Auto) 56.2 (48.0-80.0) % Lymph % (Auto) 33.2 (16.0-40.0) % [place] % (Auto) 10.0 (0.0-15.0) % Eos % (Auto) 0.3 (0.0-7.0) % Baso % (Auto) 0.3 (0.0-1.5) % Neut # (Auto) 2.1 (1.4-5.7) K/uL Lymph # (Auto) 1.2 (0.6-2.4) K/uL [place] # (Auto) 0.4 (0.0-0.8) K/uL Eos # (Auto) 0.0 (0.0-0.7) K/uL Baso # (Auto) 0.0 (0.0-0.1) K/uL Nucleated RBC % 0.0 /100WBC Nucleated RBCs # 0 K/uL ESR (0-19) mm/hr D-Dimer, Quantitative (0.0-0.50) mg/L FEU Lactate 1.0 (0.20-2.00) mmol/L Sodium 138 (136-148) mmol/L Potassium 3.7 (3.5-5.1) mmol/L Chloride 100 (98-107) mmol/L Carbon Dioxide 26.1 (21.0-32.0) mmol/L BUN 15 (7.0-18.0) mg/dL Creatinine 1.2 (0.8-1.3) mg/dL Est Cr Clr Drug Dosing 75.16 mL/min Estimated GFR (MDRD) > 60.0 ml/min Glucose 88 (74-106) mg/dL Calcium 8.7 (8.5-10.1) mg/dL Phosphorus (2.6-4.7) mg/dL Magnesium (1.8-2.4) mg/dL Ferritin (26-388) ng/mL Total Bilirubin 1.1 H (0.2-1.0) mg/dL AST 41 H (15-37) IU/L ALT 107 H (14-63) IU/L Alkaline Phosphatase 62 (46-116) U/L Lactate Dehydrogenase (81-234) U/L C-Reactive Protein (0.00-0.90) mg/dL Total Protein 8.1 (6.4-8.2) g/dL Albumin 4.2 (3.4-5.0) g/dL Globulin 3.9 (2.6-4.0) g/dL Albumin/Globulin Ratio 1.1 (0.9-1.6) TSH 3rd Generation 1.54 (0.36-3.74) uIU/mL Urine Color Urine Appearance Urine pH (5.0-8.0) Ur Specific [place] (1.001-1.035) Urine Protein (NEGATIVE) mg/dL Urine Glucose (UA) (NEGATIVE) mg/dL Urine Ketones (NEGATIVE) mg/dL Urine Occult Blood (NEGATIVE) Urine Nitrite (NEGATIVE) Urine Bilirubin (NEGATIVE) Urine Urobilinogen (<2.0) EU/dL Ur Leukocyte Esterase (NEGATIVE) Urine RBC (0-2/HPF) Urine WBC (0-5/HPF) Ur Epithelial Cells (NONE-FEW) Urine Bacteria (NEGATIVE) SARS-CoV-2 RNA (EMILY) (NEGATIVE) 12/19/19 12/19/19 12/19/19 Range/Units 15:41 16:24 16:24 WBC (4.0-11.0) K/uL RBC (4.50-5.90) M/uL Hgb (13.0-17.0) g/dL Hct (38.0-50.0) % MCV (80.0-98.0) fL MCH (27.0-32.0) pg MCHC (31.0-37.0) g/dL RDW Std Deviation (28.0-62.0) fl RDW Coeff of Timothy (11.0-15.0) % Plt Count (150-400) K/uL MPV (7.40-12.00) fL Neut % (Auto) (48.0-80.0) % Lymph % (Auto) (16.0-40.0) % [place] % (Auto) (0.0-15.0) % Eos % (Auto) (0.0-7.0) % Baso % (Auto) (0.0-1.5) % Neut # (Auto) (1.4-5.7) K/uL Lymph # (Auto) (0.6-2.4) K/uL [place] # (Auto) (0.0-0.8) K/uL Eos # (Auto) (0.0-0.7) K/uL Baso # (Auto) (0.0-0.1) K/uL Nucleated RBC % /100WBC Nucleated RBCs # K/uL ESR 16 (0-19) mm/hr D-Dimer, Quantitative 0.41 (0.0-0.50) mg/L FEU Lactate (0.20-2.00) mmol/L Sodium (136-148) mmol/L Potassium (3.5-5.1) mmol/L Chloride (98-107) mmol/L Carbon Dioxide (21.0-32.0) mmol/L BUN (7.0-18.0) mg/dL Creatinine (0.8-1.3) mg/dL Est Cr Clr Drug Dosing mL/min Estimated GFR (MDRD) ml/min Glucose (74-106) mg/dL Calcium (8.5-10.1) mg/dL Phosphorus (2.6-4.7) mg/dL Magnesium (1.8-2.4) mg/dL Ferritin (26-388) ng/mL Total Bilirubin (0.2-1.0) mg/dL AST (15-37) IU/L ALT (14-63) IU/L Alkaline Phosphatase (46-116) U/L Lactate Dehydrogenase 300 H (81-234) U/L C-Reactive Protein 2.80 H (0.00-0.90) mg/dL Total Protein (6.4-8.2) g/dL Albumin (3.4-5.0) g/dL Globulin (2.6-4.0) g/dL Albumin/Globulin Ratio (0.9-1.6) TSH 3rd Generation (0.36-3.74) uIU/mL Urine Color Urine Appearance Urine pH (5.0-8.0) Ur Specific [place] (1.001-1.035) Urine Protein (NEGATIVE) mg/dL Urine Glucose (UA) (NEGATIVE) mg/dL Urine Ketones (NEGATIVE) mg/dL Urine Occult Blood (NEGATIVE) Urine Nitrite (NEGATIVE) Urine Bilirubin (NEGATIVE) Urine Urobilinogen (<2.0) EU/dL Ur Leukocyte Esterase (NEGATIVE) Urine RBC (0-2/HPF) Urine WBC (0-5/HPF) Ur Epithelial Cells (NONE-FEW) Urine Bacteria (NEGATIVE) SARS-CoV-2 RNA (EMILY) (NEGATIVE) 10/16/20 10/16/20 10/16/20 Range/Units 16:24 16:42 18:06 WBC (4.0-11.0) K/uL RBC (4.50-5.90) M/uL Hgb (13.0-17.0) g/dL Hct (38.0-50.0) % MCV (80.0-98.0) fL MCH (27.0-32.0) pg MCHC (31.0-37.0) g/dL RDW Std Deviation (28.0-62.0) fl RDW Coeff of Timothy (11.0-15.0) % Plt Count (150-400) K/uL MPV (7.40-12.00) fL Neut % (Auto) (48.0-80.0) % Lymph % (Auto) (16.0-40.0) % [place] % (Auto) (0.0-15.0) % Eos % (Auto) (0.0-7.0) % Baso % (Auto) (0.0-1.5) % Neut # (Auto) (1.4-5.7) K/uL Lymph # (Auto) (0.6-2.4) K/uL [place] # (Auto) (0.0-0.8) K/uL Eos # (Auto) (0.0-0.7) K/uL Baso # (Auto) (0.0-0.1) K/uL Nucleated RBC % /100WBC Nucleated RBCs # K/uL ESR (0-19) mm/hr D-Dimer, Quantitative (0.0-0.50) mg/L FEU Lactate (0.20-2.00) mmol/L Sodium (136-148) mmol/L Potassium (3.5-5.1) mmol/L Chloride (98-107) mmol/L Carbon Dioxide (21.0-32.0) mmol/L BUN (7.0-18.0) mg/dL Creatinine (0.8-1.3) mg/dL Est Cr Clr Drug Dosing mL/min Estimated GFR (MDRD) ml/min Glucose (74-106) mg/dL Calcium (8.5-10.1) mg/dL Phosphorus (2.6-4.7) mg/dL Magnesium (1.8-2.4) mg/dL Ferritin 1387 H (26-388) ng/mL Total Bilirubin (0.2-1.0) mg/dL AST (15-37) IU/L ALT (14-63) IU/L Alkaline Phosphatase (46-116) U/L Lactate Dehydrogenase (81-234) U/L C-Reactive Protein (0.00-0.90) mg/dL Total Protein (6.4-8.2) g/dL Albumin (3.4-5.0) g/dL Globulin (2.6-4.0) g/dL Albumin/Globulin Ratio (0.9-1.6) TSH 3rd Generation (0.36-3.74) uIU/mL Urine Color YELLOW Urine Appearance HAZY Urine pH 6.0 (5.0-8.0) Ur Specific [place] 1.025 (1.001-1.035) Urine Protein 30 H (NEGATIVE) mg/dL Urine Glucose (UA) NEGATIVE (NEGATIVE) mg/dL Urine Ketones NEGATIVE (NEGATIVE) mg/dL Urine Occult Blood TRACE-INTACT H (NEGATIVE) Urine Nitrite NEGATIVE (NEGATIVE) Urine Bilirubin NEGATIVE (NEGATIVE) Urine Urobilinogen 4.0 H (<2.0) EU/dL Ur Leukocyte Esterase NEGATIVE (NEGATIVE) Urine RBC 0-1 (0-2/HPF) Urine WBC 0-1 (0-5/HPF) Ur Epithelial Cells RARE (NONE-FEW) Urine Bacteria RARE (NEGATIVE) SARS-CoV-2 RNA (EMILY) POSITIVE H (NEGATIVE) 12/20/19 12/20/19 Range/Units 05:30 05:30 WBC 3.71 L (4.0-11.0) K/uL RBC 4.70 (4.50-5.90) M/uL Hgb 14.7 (13.0-17.0) g/dL Hct 43.6 (38.0-50.0) % MCV 92.8 (80.0-98.0) fL MCH 31.3 (27.0-32.0) pg MCHC 33.7 (31.0-37.0) g/dL RDW Std Deviation 45.1 (28.0-62.0) fl RDW Coeff of Timothy 13 (11.0-15.0) % Plt Count 93 L (150-400) K/uL MPV 11.70 (7.40-12.00) fL Neut % (Auto) 57.3 (48.0-80.0) % Lymph % (Auto) 34.8 (16.0-40.0) % [place] % (Auto) 7.3 (0.0-15.0) % Eos % (Auto) 0.3 (0.0-7.0) % Baso % (Auto) 0.3 (0.0-1.5) % Neut # (Auto) 2.1 (1.4-5.7) K/uL Lymph # (Auto) 1.3 (0.6-2.4) K/uL [place] # (Auto) 0.3 (0.0-0.8) K/uL Eos # (Auto) 0.0 (0.0-0.7) K/uL Baso # (Auto) 0.0 (0.0-0.1) K/uL Nucleated RBC % 0.0 /100WBC Nucleated RBCs # 0 K/uL ESR (0-19) mm/hr D-Dimer, Quantitative (0.0-0.50) mg/L FEU Lactate (0.20-2.00) mmol/L Sodium 136 (136-148) mmol/L Potassium 3.9 (3.5-5.1) mmol/L Chloride 101 (98-107) mmol/L Carbon Dioxide 22.8 (21.0-32.0) mmol/L BUN 13 (7.0-18.0) mg/dL Creatinine 1.1 (0.8-1.3) mg/dL Est Cr Clr Drug Dosing 81.99 mL/min Estimated GFR (MDRD) > 60.0 ml/min Glucose 93 (74-106) mg/dL Calcium 8.2 L (8.5-10.1) mg/dL Phosphorus 3.3 (2.6-4.7) mg/dL Magnesium 1.8 (1.8-2.4) mg/dL Ferritin (26-388) ng/mL Total Bilirubin 1.0 (0.2-1.0) mg/dL AST 31 (15-37) IU/L ALT 84 H (14-63) IU/L Alkaline Phosphatase 54 (46-116) U/L Lactate Dehydrogenase (81-234) U/L C-Reactive Protein (0.00-0.90) mg/dL Total Protein 7.1 (6.4-8.2) g/dL Albumin 3.7 (3.4-5.0) g/dL Globulin 3.4 (2.6-4.0) g/dL Albumin/Globulin Ratio 1.1 (0.9-1.6) TSH 3rd Generation (0.36-3.74) uIU/mL Urine Color Urine Appearance Urine pH (5.0-8.0) Ur Specific [place] (1.001-1.035) Urine Protein (NEGATIVE) mg/dL Urine Glucose (UA) (NEGATIVE) mg/dL Urine Ketones (NEGATIVE) mg/dL Urine Occult Blood (NEGATIVE) Urine Nitrite (NEGATIVE) Urine Bilirubin (NEGATIVE) Urine Urobilinogen (<2.0) EU/dL Ur Leukocyte Esterase (NEGATIVE) Urine RBC (0-2/HPF) Urine WBC (0-5/HPF) Ur Epithelial Cells (NONE-FEW) Urine Bacteria (NEGATIVE) SARS-CoV-2 RNA (EMILY) (NEGATIVE) Med Orders - Current: Current Medications Acetaminophen (Tylenol Extra Strength) 500 mg PO Q4H PRN PRN Reason: Fever Last Admin: 12/20/19 08:39 Dose: 500 mg Documented by: Albuterol/Ipratropium (Combivent Respimat) 0 gm INH Q4H PRN PRN Reason: Dyspnea Betamethasone/Clotrimazole (Lotrisone) 1 gm TOP BID [facility] Last Admin: 12/20/19 09:07 Dose: 1 applic Documented by: Dexamethasone (Dexamethasone) 6 mg PO DAILY [facility] Last Admin: 12/20/19 10:51 Dose: 6 mg Documented by: Enoxaparin Sodium (Lovenox) 40 mg SUBCUT Q24H [facility] Last Admin: 12/19/19 23:40 Dose: 40 mg Documented by: Lorazepam (Ativan) 1 mg IVPUSH Q6H PRN PRN Reason: Anxiety Sodium Chloride (Saline Flush) 10 ml FLUSH ASDIRECTED PRN PRN Reason: Keep Vein Open Last Admin: 12/19/19 16:33 Dose: 10 ml Documented by: Sodium Chloride (Saline Flush) 2.5 ml FLUSH ASDIRECTED PRN PRN Reason: Keep Vein Open Last Admin: 12/19/19 22:44 Dose: 2.5 ml Documented by: Discontinued Medications Acetaminophen (Tylenol Extra Strength) 1,000 mg PO ONETIME ONE Stop: 12/19/19 16:36 Last Admin: 12/19/19 16:39 Dose: 1,000 mg Documented by: Albuterol/Ipratropium (Duoneb 3.0-0.5 Mg/3 Ml) 3 ml NEB Q4HRRT PRN PRN Reason: Shortness Of Breath/wheezing Betamethasone/Clotrimazole (Lotrisone) 1 gm TOP NOW STA Stop: 12/19/19 17:55 Last Admin: 12/19/19 18:08 Dose: 1 gm Documented by: Clotrimazole (Lotrimin Af 1% Crm) 1 gm TOP NOW STA Stop: 12/19/19 17:39 Last Admin: 12/19/19 17:53 Dose: Not Given Documented by: Clotrimazole (Lotrimin Af 1% Crm) 0 gm TOP BID [facility] Last Admin: 12/19/19 23:44 Dose: Not Given Documented by: Lactated Ringer's (Ringers, Lactated) 1,000 mls @ 125 mls/hr IV ASDIRECTED [facility] Stop: 12/20/19 05:14 Last Admin: 12/19/19 22:44 Dose: 125 mls/hr Documented by: Iopamidol (Isovue Multipack-370 (76%)) 100 ml IVPUSH ONETIME ONE Stop: 12/19/19 19:24 Last Admin: 12/19/19 19:24 Dose: 100 ml Documented by: Lorazepam (Ativan) 2 mg IVPUSH ONETIME ONE Stop: 12/19/19 23:15 Last Admin: 12/19/19 23:40 Dose: 2 mg Documented by: - Exam Quality Assessment: No: Supplemental Oxygen General: Alert, Oriented, No Acute Distress Neck: Supple, Trachea Midline Lungs: Decreased Breath Sounds, Rales. No: Crackles, Wheezing Cardiovascular: Regular Rate, Regular Rhythm Extremities: Normal Inspection, Limited Range of Motion Sepsis Event Note - Evaluation Sepsis Screening Result: No Definite Risk - Focused Exam Vital Signs: Vital Signs Temp Pulse Resp BP Pulse Ox 12/20/19 08:42 37.2 C 62 22 H 134/86 94 L 12/20/19 04:24 37.0 C 60 15 125/90 92 L 12/20/19 01:57 94 L - Problem List & Annotations (1) Balanitis SNOMED Code(s): 58122196 Code(s): N48.1 - BALANITIS Status: Acute Current Visit: Yes (2) COVID-19 SNOMED Code(s): 648307091 Code(s): U07.1 - COVID-19 Status: Acute Current Visit: Yes - Problem List Review Problem List Initiated/Reviewed/Updated: Yes - My Orders Last 24 Hours: My Active Orders 12/19/19 Dinner Regular Diet [DIET] 12/19/19 19:00 Communication Order [RC] BID 12/19/19 21:08 Ambulate [RC] ASDIRECTED Oxygen Therapy [RC] PRN Pulse Oximetry [RC] PRN VTE/DVT Education [RC] PER UNIT ROUTINE Vital Signs [RC] Q4H Sequential Compression Device [OM.PC] Per Unit Routine Resuscitation Status Routine 12/19/19 21:09 Antiembolic Devices [RC] PER UNIT ROUTINE RT Aerosol Therapy [RC] ASDIRECTED 12/19/19 21:14 Albuterol/Ipratropium [Combivent Respimat] See Dose Instructions INH Q4H PRN 12/19/19 21:15 RT Post Treatment Assessment [RC] Click to Edit RT Pre-Treatment Assessment [RC] Click to Edit 12/19/19 21:51 PT Evaluation and Treatment [CONS] Routine 12/19/19 22:00 Enoxaparin [Lovenox] 40 mg SUBCUT Q24H 12/19/19 22:28 Telemetry Monitoring [Cardiac Monitoring] [RC] Q8H 12/19/19 23:15 Acetaminophen [Tylenol Extra Strength] 500 mg PO Q4H PRN 12/20/19 04:00 LORazepam [Ativan] 1 mg IVPUSH Q6H PRN 12/20/19 09:00 Betamethasone/Clotrimazole [Lotrisone] 1 gm TOP BID 12/20/19 10:30 dexAMETHasone 6 mg PO DAILY - Plan Plan:: 59 y/o M admitted for generalized weakness, SOBm still very weak, unable to ambulate without supervision COVID positive,on RA Oxygen as needed Combivent as needed IV fluids, limit to 1L Lovenox for dvt ppx Patient has consented to Remdesivir administration, should he become hypoxic, explained emergency use FDA authorization of Remdesivir. He was explained side effects including hepatitis and anaphylaxis and patient consents to treatment. Fact sheet will be provided if medication is needed [facility] resolving PT assessment on hold as no PT available over weekend Encourage OOB to chair cont ICS
[2019-12-20] MEDS ORDERED: REMDESIVIR 100 MG ONE (15:00)
[2019-12-20] MEDS: Enoxaparin 40 MG/0.4 ML Syringe SUBCUT SCH (21:20)
[2019-12-21] MEDS: Acetaminophen 500 MG Tab PO PRN (01:51)
[2019-12-21] MEDS ORDERED: LORazepam 2 MG/ML SDV IVPUSH ONE ×3 (02:14→05:20)
[2019-12-21] MEDS ORDERED: LORazepam 2 MG/ML SDV IVPUSH PRN (02:18)
[2019-12-21] MEDS ORDERED: diphenhydrAMINE 50 MG/ML SDV IVPUSH ONE ×2 (03:25→05:20)
[2019-12-21] MEDS ORDERED: Haloperidol Lactate 5 MG/ML SDV IM ONE (03:27)
[2019-12-21 05:54] LABS: BLOOD UREA NITROGEN,BUN 19 mg/dL (7.0-18.0); CARBON DIOXIDE,CO2 21.3 mmol/L (21.0-32.0); CHLORIDE,CL 103 mmol/L (98-107); GLUCOSE RANDOM 109 mg/dL (74-106); POTASSIUM,K 4.3 mmol/L (3.5-5.1); SODIUM,NA 136 mmol/L (136-148)
[2019-12-21] MEDS ORDERED: REMDESIVIR 100 MG in Sodium Chloride 0.9% 100 ML IV SCH ×2 (09:00→15:00)
[2019-12-21] MEDS: Dexamethasone 4 MG Tab PO SCH (09:54)
[2019-12-21] MEDS: Betamethasone Dipropionate/Clotrimazole 0.05-1% Crm 15 GM Tube TOP SCH (09:55)
--- NOTE | 2019-12-21 12:13 | PCM.PN ---
- General Info Date of Service: 12/21/19 Admission Dx/Problem (Free Text): Admission Diagnosis/Problem Admission Diagnosis/Problem Viral respiratory infection Subjective Update: seen at bedside, sleeping after receiving Ativan and Haldol overnight. unsteady gait when tried to walk earlier possible due to the medications, on RA . - Review of Systems General: Reports: Weakness, Fatigue, Malaise. Denies: Fever Pulmonary: Reports: Shortness of Breath. Denies: Pleuritic Chest Pain, Cough Cardiovascular: Denies: Chest Pain, Palpitations, Dyspnea on Exertion Gastrointestinal: Denies: Abdominal Pain, Constipation, Decreased Appetite, Diarrhea Genitourinary: Denies: Dysuria, Frequency, Burning, Urgency Psychiatric: Reports: Mood Lability, Anxiety, Agitation - Patient Data Vitals - Most Recent: Last Vital Signs Temp 36.9 C 12/21/19 08:09 Pulse 63 12/21/19 08:09 Resp 18 12/21/19 08:09 BP 158/107 H 12/21/19 08:09 Pulse Ox 92 L 12/21/19 08:09 Weight - Most Recent: 113.398 kg I&O - Last 24 Hours: Intake & Output 12/20/19 12/21/19 12/21/19 22:59 06:59 14:59 Intake Total 1420 480 Output Total 1000 Balance 420 480 Lab Results Last 24 Hours: Laboratory Results - last 24 hr 12/21/19 12/21/19 12/21/19 Range/Units 05:01 05:01 05:01 WBC 5.22 (4.0-11.0) K/uL RBC 4.99 (4.50-5.90) M/uL Hgb 16.1 (13.0-17.0) g/dL Hct 46.2 (38.0-50.0) % MCV 92.6 (80.0-98.0) fL MCH 32.3 H (27.0-32.0) pg MCHC 34.8 (31.0-37.0) g/dL RDW Std Deviation 44.1 (28.0-62.0) fl RDW Coeff of Timothy 13 (11.0-15.0) % Plt Count 131 L (150-400) K/uL MPV 11.70 (7.40-12.00) fL Neut % (Auto) 65.1 (48.0-80.0) % Lymph % (Auto) 25.3 (16.0-40.0) % [place] % (Auto) 9.6 (0.0-15.0) % Eos % (Auto) 0.0 (0.0-7.0) % Baso % (Auto) 0.0 (0.0-1.5) % Neut # (Auto) 3.4 (1.4-5.7) K/uL Lymph # (Auto) 1.3 (0.6-2.4) K/uL [place] # (Auto) 0.5 (0.0-0.8) K/uL Eos # (Auto) 0.0 (0.0-0.7) K/uL Baso # (Auto) 0.0 (0.0-0.1) K/uL Nucleated RBC % 0.0 /100WBC Nucleated RBCs # 0 K/uL Sodium 136 (136-148) mmol/L Potassium 4.3 (3.5-5.1) mmol/L Chloride 103 (98-107) mmol/L Carbon Dioxide 21.3 (21.0-32.0) mmol/L BUN 19 H (7.0-18.0) mg/dL Creatinine 1.1 (0.8-1.3) mg/dL Est Cr Clr Drug Dosing 81.99 mL/min Estimated GFR (MDRD) > 60.0 ml/min Glucose 109 H (74-106) mg/dL Calcium 8.8 (8.5-10.1) mg/dL Phosphorus 3.4 (2.6-4.7) mg/dL Magnesium 2.0 (1.8-2.4) mg/dL Ferritin 996 H (26-388) ng/mL Total Bilirubin 0.8 (0.2-1.0) mg/dL AST 28 (15-37) IU/L ALT 82 H (14-63) IU/L Alkaline Phosphatase 63 (46-116) U/L Lactate Dehydrogenase (81-234) U/L C-Reactive Protein (0.00-0.90) mg/dL Total Protein 7.9 (6.4-8.2) g/dL Albumin 3.9 (3.4-5.0) g/dL Globulin 4.0 (2.6-4.0) g/dL Albumin/Globulin Ratio 1.0 (0.9-1.6) 12/21/19 Range/Units 10:24 WBC (4.0-11.0) K/uL RBC (4.50-5.90) M/uL Hgb (13.0-17.0) g/dL Hct (38.0-50.0) % MCV (80.0-98.0) fL MCH (27.0-32.0) pg MCHC (31.0-37.0) g/dL RDW Std Deviation (28.0-62.0) fl RDW Coeff of Timothy (11.0-15.0) % Plt Count (150-400) K/uL MPV (7.40-12.00) fL Neut % (Auto) (48.0-80.0) % Lymph % (Auto) (16.0-40.0) % [place] % (Auto) (0.0-15.0) % Eos % (Auto) (0.0-7.0) % Baso % (Auto) (0.0-1.5) % Neut # (Auto) (1.4-5.7) K/uL Lymph # (Auto) (0.6-2.4) K/uL [place] # (Auto) (0.0-0.8) K/uL Eos # (Auto) (0.0-0.7) K/uL Baso # (Auto) (0.0-0.1) K/uL Nucleated RBC % /100WBC Nucleated RBCs # K/uL Sodium (136-148) mmol/L Potassium (3.5-5.1) mmol/L Chloride (98-107) mmol/L Carbon Dioxide (21.0-32.0) mmol/L BUN (7.0-18.0) mg/dL Creatinine (0.8-1.3) mg/dL Est Cr Clr Drug Dosing mL/min Estimated GFR (MDRD) ml/min Glucose (74-106) mg/dL Calcium (8.5-10.1) mg/dL Phosphorus (2.6-4.7) mg/dL Magnesium (1.8-2.4) mg/dL Ferritin (26-388) ng/mL Total Bilirubin (0.2-1.0) mg/dL AST (15-37) IU/L ALT (14-63) IU/L Alkaline Phosphatase (46-116) U/L Lactate Dehydrogenase 294 H (81-234) U/L C-Reactive Protein 2.80 H (0.00-0.90) mg/dL Total Protein (6.4-8.2) g/dL Albumin (3.4-5.0) g/dL Globulin (2.6-4.0) g/dL Albumin/Globulin Ratio (0.9-1.6) Lawson Results Last 24 Hours: Microbiology 12/19/19 16:24 Aerobic Blood Culture - Preliminary Blood - Venous - Lab Draw NO GROWTH AFTER 1 DAY Anaerobic Blood Culture - Preliminary NO GROWTH AFTER 1 DAY 12/19/19 16:14 Aerobic Blood Culture - Preliminary Blood - Venous NO GROWTH AFTER 1 DAY Anaerobic Blood Culture - Preliminary NO GROWTH AFTER 1 DAY Med Orders - Current: Current Medications Acetaminophen (Tylenol Extra Strength) 500 mg PO Q4H PRN PRN Reason: Fever Last Admin: 12/21/19 01:51 Dose: 500 mg Documented by: Albuterol/Ipratropium (Combivent Respimat) 0 gm INH Q4H PRN PRN Reason: Dyspnea Betamethasone/Clotrimazole (Lotrisone) 1 gm TOP BID [facility] Last Admin: 12/21/19 09:55 Dose: 1 applic Documented by: Dexamethasone (Dexamethasone) 6 mg PO DAILY [facility] Last Admin: 12/21/19 09:54 Dose: 6 mg Documented by: Enoxaparin Sodium (Lovenox) 40 mg SUBCUT Q24H [facility] Last Admin: 12/20/19 21:20 Dose: 40 mg Documented by: Remdesivir 100 mg/ Sodium (Chloride) 100 mls @ 100 mls/hr IV Q24H [facility] Stop: 12/24/19 15:59 Lorazepam (Ativan) 1 mg IVPUSH Q4H PRN PRN Reason: Anxiety Sodium Chloride (Saline Flush) 10 ml FLUSH ASDIRECTED PRN PRN Reason: Keep Vein Open Last Admin: 12/19/19 16:33 Dose: 10 ml Documented by: Sodium Chloride (Saline Flush) 2.5 ml FLUSH ASDIRECTED PRN PRN Reason: Keep Vein Open Last Admin: 12/19/19 22:44 Dose: 2.5 ml Documented by: Discontinued Medications Acetaminophen (Tylenol Extra Strength) 1,000 mg PO ONETIME ONE Stop: 12/19/19 16:36 Last Admin: 12/19/19 16:39 Dose: 1,000 mg Documented by: Albuterol/Ipratropium (Duoneb 3.0-0.5 Mg/3 Ml) 3 ml NEB Q4HRRT PRN PRN Reason: Shortness Of Breath/wheezing Betamethasone/Clotrimazole (Lotrisone) 1 gm TOP NOW STA Stop: 12/19/19 17:55 Last Admin: 12/19/19 18:08 Dose: 1 gm Documented by: Clotrimazole (Lotrimin Af 1% Crm) 1 gm TOP NOW STA Stop: 12/19/19 17:39 Last Admin: 12/19/19 17:53 Dose: Not Given Documented by: Clotrimazole (Lotrimin Af 1% Crm) 0 gm TOP BID [facility] Last Admin: 12/19/19 23:44 Dose: Not Given Documented by: Diphenhydramine HCl (Benadryl) 25 mg IVPUSH ONETIME ONE Stop: 12/21/19 03:26 Last Admin: 12/21/19 03:45 Dose: 25 mg Documented by: Diphenhydramine HCl (Benadryl) 50 mg IVPUSH ONETIME ONE Stop: 12/21/19 05:21 Last Admin: 12/21/19 06:51 Dose: 50 mg Documented by: Haloperidol Lactate (Haldol) 5 mg IM ONETIME ONE Stop: 12/21/19 03:28 Last Admin: 12/21/19 03:43 Dose: 5 mg Documented by: Lactated Ringer's (Ringers, Lactated) 1,000 mls @ 125 mls/hr IV ASDIRECTED [facility] Stop: 12/20/19 05:14 Last Admin: 12/19/19 22:44 Dose: 125 mls/hr Documented by: Iopamidol (Isovue Multipack-370 (76%)) 100 ml IVPUSH ONETIME ONE Stop: 12/19/19 19:24 Last Admin: 12/19/19 19:24 Dose: 100 ml Documented by: Lorazepam (Ativan) 2 mg IVPUSH ONETIME ONE Stop: 12/19/19 23:15 Last Admin: 12/19/19 23:40 Dose: 2 mg Documented by: Lorazepam (Ativan) 1 mg IVPUSH Q6H PRN PRN Reason: Anxiety Last Admin: 12/21/19 00:55 Dose: 1 mg Documented by: Lorazepam (Ativan) 1 mg IVPUSH ONETIME ONE Stop: 12/21/19 02:15 Last Admin: 12/21/19 02:24 Dose: 1 mg Documented by: Lorazepam (Ativan) 1 mg IVPUSH ONETIME ONE Stop: 12/21/19 03:29 Last Admin: 12/21/19 03:56 Dose: 1 mg Documented by: Lorazepam (Ativan) 2 mg IVPUSH ONETIME ONE Stop: 12/21/19 05:21 Last Admin: 12/21/19 05:47 Dose: 2 mg Documented by: Remdesivir (Remdesivir (Eua)) 200 mg .ROUTE .STK-MED ONE Stop: 12/20/19 15:01 - Exam General: No Acute Distress, Sedated Neck: Supple Lungs: Decreased Breath Sounds, Rales Cardiovascular: Regular Rate GI/Abdominal Exam: Normal Bowel Sounds, Soft, Non-Tender Back Exam: Normal Inspection Extremities: Normal Inspection, Non-Tender Sepsis Event Note - Evaluation Sepsis Screening Result: No Definite Risk - Focused Exam Vital Signs: Vital Signs Temp Pulse Resp BP Pulse Ox 12/21/19 08:09 36.9 C 63 18 158/107 H 92 L 12/21/19 03:09 36.4 C 61 19 132/86 94 L 12/21/19 00:34 36.6 C 58 L 19 109/59 L 91 L - Problem List & Annotations (1) Balanitis SNOMED Code(s): 51168514 Code(s): N48.1 - BALANITIS Status: Acute Current Visit: Yes (2) COVID-19 SNOMED Code(s): 294785396 Code(s): U07.1 - COVID-19 Status: Acute Current Visit: Yes - Problem List Review Problem List Initiated/Reviewed/Updated: Yes - My Orders Last 24 Hours: My Active Orders 12/21/19 02:18 LORazepam [Ativan] 1 mg IVPUSH Q4H PRN 12/21/19 15:00 Remdesivir (Eua) [Remdesivir (EUA)] 100 mg Sodium Chloride 0.9% [Normal Saline] 100 ml IV Q24H - Plan Plan:: 59 y/o M admitted for generalized weakness, SOB COVID positive, Oxygen as needed Combivent as needed IV fluids, limit to 1L SCD for dvt ppx re-check inflammatory markers cont Remdesivir, Lovenox, dexamethasone trend LFTs Very anxious and agitated overnight, wanted to leave AMA unless given "more meds to sleep". I spoke to him over phone and was able to pacify him, He received pretty heavy dose of Ativan and Haldol, currently is resting I believe there is underlying anxiety about his brother recently passing after being intubated, he is very anxious and doesn't want to walk around or be out of bed to chair, causing him to be more deconditioned, has crying spells while speaking to me, . I encouraged him to be more active, and that i cannot keep him sedated all the time. He had expressed he wanted to be DNI to the nurse but given that he was heavily medicated, will approach that topic again when he is more awake and thinking more clearly. PT assessment in AM
--- NOTE | 2019-12-21 15:40 | PCM.DCSUM1 ---
Discharge Summary - Hospital Course Free Text/Narrative:: Patient is a 59-year-old male with PMH of possible early Parkinson who presents to the emergency room with complaints of fevers, chills, shortness of breath and cough x2 days. He feels extremely weak. Patient also states that he has a "infection on penis". States he has pain and itching at the head of his penis but denied any denies any discharge or drainage. He had some irritation to the bilateral groin as well, which he has been using OTC cream without relief. Patient denies any headache, change in vision, syncope or near syncope. Denies any chest pain, back pain, abdominal pain, nausea, vomiting, diarrhea, constipation or dysuria. Has not noted any blood in urine or stool. Patient has been eating and drinking appropriately. He briscoe sa fever of 38.4, CXR showed soft tissue density in the right paratracheal region, with minimal opacity in right l meño base. CT chest was done which showed patchy opacity in lungs consistent with COVID_19. Covid test was positive, patient was maintain his oxygen magdalena on RA,, but felt sob on exertion,felt very weak to go home. Patient was admitted for further management.Patient was started on dexamethasone, lovenox, next day his o2 sats dropped to low 90s, so remdesivir was started, patient was very anxious through his hospital stay. He recieved several doses of ativan for his anxiety. Patients oxygen sats imrpved and was weaned off oxygen to RA. Patient was unsteady on ambulation so PTwas consulted for assesment. After he woke up this afternoon (12/20), he felt well rested, and "was ready to go back out there" patient had removed his IV and had dressed himself. He told the nurse he is ready to go and wants to leave. It was recommenced him to stay till he is seen by PT but patient didnt want to stay and signed out AMA. Patient was alert, oriented and and understood the risks of leaving AMA, Signed out AMA. Was sating 92-94% on RA - Discharge Data Discharge Date: 12/21/19 Discharge Disposition: Home, Self-Care 01 Condition: Stable - Referral to Home Health Primary Care Physician: PCP None - Discharge Diagnosis/Problem(s) (1) Mart STEENOMED Code(s): 50403935 ICD Code: N48.1 - BALANITIS Status: Acute Current Visit: Yes (2) COVID-19 SNOMED Code(s): 791140098 ICD Code: U07.1 - COVID-19 Status: Acute Current Visit: Yes - Patient Summary/Data Consults: Consultations 12/19/19 21:51 PT Evaluation and Treatment [CONS] Routine - Discharge Plan *PRESCRIPTION DRUG MONITORING PROGRAM REVIEWED*: No *COPY OF PRESCRIPTION DRUG MONITORING REPORT IN PATIENT JOÃO: No Home Medications: Home Meds . [No Known Home Meds] 12/19/19 [History] Patient Handouts: COVID-19 Frequently Asked Questions, COVID-19: How to Protect Yourself and Others - CDC, Mart, Prevent the Spread of COVID-19 if You Are Sick - [facility] NAMED [facility] Forms: ED Department Discharge Referrals: PCP,None [Primary Care Provider] - - Discharge Summary/Plan Comment DC Time >30 min.: No - Patient Data Vitals - Most Recent: Last Vital Signs Temp 36.8 C 12/21/19 12:00 Pulse 64 12/21/19 12:00 Resp 16 12/21/19 12:00 BP 136/88 12/21/19 12:00 Pulse Ox 92 L 12/21/19 12:00 Weight - Most Recent: 113.398 kg I&O - Last 24 hours: Intake & Output 12/21/19 12/21/19 12/21/19 06:59 14:59 22:59 Intake Total 480 Balance 480 Lab Results - Last 24 hrs: Laboratory Results - last 24 hr 12/21/19 12/21/19 12/21/19 Range/Units 05:01 05:01 05:01 WBC 5.22 (4.0-11.0) K/uL RBC 4.99 (4.50-5.90) M/uL Hgb 16.1 (13.0-17.0) g/dL Hct 46.2 (38.0-50.0) % MCV 92.6 (80.0-98.0) fL MCH 32.3 H (27.0-32.0) pg MCHC 34.8 (31.0-37.0) g/dL RDW Std Deviation 44.1 (28.0-62.0) fl RDW Coeff of Timothy 13 (11.0-15.0) % Plt Count 131 L (150-400) K/uL MPV 11.70 (7.40-12.00) fL Neut % (Auto) 65.1 (48.0-80.0) % Lymph % (Auto) 25.3 (16.0-40.0) % [place] % (Auto) 9.6 (0.0-15.0) % Eos % (Auto) 0.0 (0.0-7.0) % Baso % (Auto) 0.0 (0.0-1.5) % Neut # (Auto) 3.4 (1.4-5.7) K/uL Lymph # (Auto) 1.3 (0.6-2.4) K/uL [place] # (Auto) 0.5 (0.0-0.8) K/uL Eos # (Auto) 0.0 (0.0-0.7) K/uL Baso # (Auto) 0.0 (0.0-0.1) K/uL Nucleated RBC % 0.0 /100WBC Nucleated RBCs # 0 K/uL Sodium 136 (136-148) mmol/L Potassium 4.3 (3.5-5.1) mmol/L Chloride 103 (98-107) mmol/L Carbon Dioxide 21.3 (21.0-32.0) mmol/L BUN 19 H (7.0-18.0) mg/dL Creatinine 1.1 (0.8-1.3) mg/dL Est Cr Clr Drug Dosing 81.99 mL/min Estimated GFR (MDRD) > 60.0 ml/min Glucose 109 H (74-106) mg/dL Calcium 8.8 (8.5-10.1) mg/dL Phosphorus 3.4 (2.6-4.7) mg/dL Magnesium 2.0 (1.8-2.4) mg/dL Ferritin 996 H (26-388) ng/mL Total Bilirubin 0.8 (0.2-1.0) mg/dL AST 28 (15-37) IU/L ALT 82 H (14-63) IU/L Alkaline Phosphatase 63 (46-116) U/L Lactate Dehydrogenase (81-234) U/L C-Reactive Protein (0.00-0.90) mg/dL Total Protein 7.9 (6.4-8.2) g/dL Albumin 3.9 (3.4-5.0) g/dL Globulin 4.0 (2.6-4.0) g/dL Albumin/Globulin Ratio 1.0 (0.9-1.6) 10/18/20 Range/Units 10:24 WBC (4.0-11.0) K/uL RBC (4.50-5.90) M/uL Hgb (13.0-17.0) g/dL Hct (38.0-50.0) % MCV (80.0-98.0) fL MCH (27.0-32.0) pg MCHC (31.0-37.0) g/dL RDW Std Deviation (28.0-62.0) fl RDW Coeff of Timothy (11.0-15.0) % Plt Count (150-400) K/uL MPV (7.40-12.00) fL Neut % (Auto) (48.0-80.0) % Lymph % (Auto) (16.0-40.0) % [place] % (Auto) (0.0-15.0) % Eos % (Auto) (0.0-7.0) % Baso % (Auto) (0.0-1.5) % Neut # (Auto) (1.4-5.7) K/uL Lymph # (Auto) (0.6-2.4) K/uL [place] # (Auto) (0.0-0.8) K/uL Eos # (Auto) (0.0-0.7) K/uL Baso # (Auto) (0.0-0.1) K/uL Nucleated RBC % /100WBC Nucleated RBCs # K/uL Sodium (136-148) mmol/L Potassium (3.5-5.1) mmol/L Chloride (98-107) mmol/L Carbon Dioxide (21.0-32.0) mmol/L BUN (7.0-18.0) mg/dL Creatinine (0.8-1.3) mg/dL Est Cr Clr Drug Dosing mL/min Estimated GFR (MDRD) ml/min Glucose (74-106) mg/dL Calcium (8.5-10.1) mg/dL Phosphorus (2.6-4.7) mg/dL Magnesium (1.8-2.4) mg/dL Ferritin (26-388) ng/mL Total Bilirubin (0.2-1.0) mg/dL AST (15-37) IU/L ALT (14-63) IU/L Alkaline Phosphatase (46-116) U/L Lactate Dehydrogenase 294 H (81-234) U/L C-Reactive Protein 2.80 H (0.00-0.90) mg/dL Total Protein (6.4-8.2) g/dL Albumin (3.4-5.0) g/dL Globulin (2.6-4.0) g/dL Albumin/Globulin Ratio (0.9-1.6) SAULO Results - Last 24 hrs: Microbiology 12/19/19 16:24 Aerobic Blood Culture - Preliminary Blood - Venous - Lab Draw NO GROWTH AFTER 1 DAY Anaerobic Blood Culture - Preliminary NO GROWTH AFTER 1 DAY 12/19/19 16:14 Aerobic Blood Culture - Preliminary Blood - Venous NO GROWTH AFTER 1 DAY Anaerobic Blood Culture - Preliminary NO GROWTH AFTER 1 DAY Med Orders - Current: Current Medications Acetaminophen (Tylenol Extra Strength) 500 mg PO Q4H PRN PRN Reason: Fever Last Admin: 12/21/19 01:51 Dose: 500 mg Documented by: Albuterol/Ipratropium (Combivent Respimat) 0 gm INH Q4H PRN PRN Reason: Dyspnea Betamethasone/Clotrimazole (Lotrisone) 1 gm TOP BID [facility] Last Admin: 12/21/19 09:55 Dose: 1 applic Documented by: Dexamethasone (Dexamethasone) 6 mg PO DAILY [facility] Last Admin: 12/21/19 09:54 Dose: 6 mg Documented by: Enoxaparin Sodium (Lovenox) 40 mg SUBCUT Q24H [facility] Last Admin: 12/20/19 21:20 Dose: 40 mg Documented by: Remdesivir 100 mg/ Sodium (Chloride) 100 mls @ 100 mls/hr IV Q24H [facility] Stop: 12/24/19 15:59 Lorazepam (Ativan) 1 mg IVPUSH Q4H PRN PRN Reason: Anxiety Sodium Chloride (Saline Flush) 10 ml FLUSH ASDIRECTED PRN PRN Reason: Keep Vein Open Last Admin: 12/19/19 16:33 Dose: 10 ml Documented by: Sodium Chloride (Saline Flush) 2.5 ml FLUSH ASDIRECTED PRN PRN Reason: Keep Vein Open Last Admin: 12/19/19 22:44 Dose: 2.5 ml Documented by: Discontinued Medications Acetaminophen (Tylenol Extra Strength) 1,000 mg PO ONETIME ONE Stop: 12/19/19 16:36 Last Admin: 12/19/19 16:39 Dose: 1,000 mg Documented by: Albuterol/Ipratropium (Duoneb 3.0-0.5 Mg/3 Ml) 3 ml NEB Q4HRRT PRN PRN Reason: Shortness Of Breath/wheezing Betamethasone/Clotrimazole (Lotrisone) 1 gm TOP NOW STA Stop: 12/19/19 17:55 Last Admin: 12/19/19 18:08 Dose: 1 gm Documented by: Clotrimazole (Lotrimin Af 1% Crm) 1 gm TOP NOW STA Stop: 12/19/19 17:39 Last Admin: 12/19/19 17:53 Dose: Not Given Documented by: Clotrimazole (Lotrimin Af 1% Crm) 0 gm TOP BID AKBAR Last Admin: 12/19/19 23:44 Dose: Not Given Documented by: Diphenhydramine HCl (Benadryl) 25 mg IVPUSH ONETIME ONE Stop: 12/21/19 03:26 Last Admin: 12/21/19 03:45 Dose: 25 mg Documented by: Diphenhydramine HCl (Benadryl) 50 mg IVPUSH ONETIME ONE Stop: 12/21/19 05:21 Last Admin: 12/21/19 06:51 Dose: 50 mg Documented by: Haloperidol Lactate (Haldol) 5 mg IM ONETIME ONE Stop: 12/21/19 03:28 Last Admin: 12/21/19 03:43 Dose: 5 mg Documented by: Lactated Ringer's (Ringers, Lactated) 1,000 mls @ 125 mls/hr IV ASDIRECTED AKBAR Stop: 12/20/19 05:14 Last Admin: 12/19/19 22:44 Dose: 125 mls/hr Documented by: Iopamidol (Isovue Multipack-370 (76%)) 100 ml IVPUSH ONETIME ONE Stop: 12/19/19 19:24 Last Admin: 12/19/19 19:24 Dose: 100 ml Documented by: Lorazepam (Ativan) 2 mg IVPUSH ONETIME ONE Stop: 12/19/19 23:15 Last Admin: 12/19/19 23:40 Dose: 2 mg Documented by: Lorazepam (Ativan) 1 mg IVPUSH Q6H PRN PRN Reason: Anxiety Last Admin: 12/21/19 00:55 Dose: 1 mg Documented by: Lorazepam (Ativan) 1 mg IVPUSH ONETIME ONE Stop: 12/21/19 02:15 Last Admin: 12/21/19 02:24 Dose: 1 mg Documented by: Lorazepam (Ativan) 1 mg IVPUSH ONETIME ONE Stop: 12/21/19 03:29 Last Admin: 12/21/19 03:56 Dose: 1 mg Documented by: Lorazepam (Ativan) 2 mg IVPUSH ONETIME ONE Stop: 12/21/19 05:21 Last Admin: 12/21/19 05:47 Dose: 2 mg Documented by: Remdesivir (Remdesivir (Eua)) 200 mg .ROUTE .STK-MED ONE Stop: 12/20/19 15:01
--- NOTE | 2019-12-22 13:58 | PCM.SN.2 ---
- Free Text/Narrative Note: Today patient has requested for discharge meds after leaving AMA. Will send scripts to his pharmacy, patient was instructed to fu with his pcp for further care.
[2019-12-23 14:07] LABS: C.TRACHOMATIS BY TMA Negative (Negative); N.GONORRHOEAE BY TMA Negative (Negative)
== END 2019-12-21 15:40 | disposition home or self-care (01) | DRG 179 ==
LOC: MW.ED 15:27 → MW.MS 20:54 → OBSVTOIN 12-21 12:14
PROVIDERS: ADMIT Student in an Organized Health Care Education/Training Program; ATTEND Student in an Organized Health Care Education/Training Program
PROC: XW033E5 Introduction of Remdesivir Anti-infective into Peripheral Vein, Percutaneous Approach, New Technology Group 5 (ICD-10-PCS; principal; 2019-12-21)
PROC: XW033F5 Introduction of Other New Technology Therapeutic Substance into Peripheral Vein, Percutaneous Approach, New Technology Group 5 (ICD-10-PCS; 2019-12-21)
DX: U07.1 COVID-19 (principal); N48.1 Balanitis
CPT/HCPCS: 36415; 70491; 70491-26; 71045; 71045-26; 71260; 71260-26; 80053; 81001; 82728; 83605; 83615; 83735; 84100; 84443; 85025; 85379; 85652; 86140; 87040; 87491; 87591; 99220; 99225; 99238; 99283; 99285-25; A9270-GY; J1200; J1630; J1650; J2060; J7120; J8540; Q9967; U0002

== ENCOUNTER 2019-12-28 23:26 | Emergency (ER) | payer OTHER ==
[2019-12-29] MEDS ORDERED: Dexamethasone 10 MG/ML SDV IM STA (00:20)
[2019-12-29] MEDS ORDERED: Albuterol HFA 18 Gm Inhaler INH STA (00:21)
--- NOTE | 2019-12-29 00:22 | EDM.PDOC ---
ED HPI GENERAL MEDICAL PROBLEM - General Chief Complaint: Respiratory Problem Stated Complaint: DIFFICULTY BREATHING Time Seen by Provider: 12/28/19 23:56 - History of Present Illness INITIAL COMMENTS - FREE TEXT/NARRATIVE: History of present illness: [] The patient feels short of breath. Especially when he eats. He feels like he has a cough. It is intermittent and improved now that he is resting in the emergency department. Patient is recently recovered from COVID-19 infection. Improved on steroids and does have viral. He has a small dose of steroids left but he stopped taking them. He got a little worse after he stopped. This is an inhaler for bronchospasm but he does not use an extension chamber. Review of systems: As per history of present illness and below otherwise all systems reviewed and negative. Past medical history: As per history of present illness and as reviewed below otherwise noncontributory. Surgical history: As per history of present illness and as reviewed below otherwise noncontri butory. Social history: No reported history of drug or alcohol abuse. Family history: As per history of present illness and as reviewed below otherwise noncontributory. Physical exam: Constitutional - well developed, well-nourished and in no acute distress HEENT - normocephalic, no evidence of trauma - external nose and mouth normal - no mass in neck and no JVD - mucosae moist EYES - full EOM, PERRL, no icterus - no evidence of inflammation, injection, or drainage Respiratory - no respiratory distress, equal bilateral expansion, lungs clear to auscultation and no abnormal lung sounds Cardiovascular - Regular Rhythm with S1 and S2 appreciated and no murmur, gallop or rub. GI - abdomen soft without distension or organomegaly - normal bowel sounds - no guard or rebound Musculoskeletal no gross deformity of long bones or joints - no tenderness, swelling or edema Neurologic - Alert and oriented times four - CN II-XII grossly intact - motor sensory and coordination symmetrically normal Psychiatric - appropriate mood and affect with normal thought content Hematologic - No petechiae or purpura - mucosa appropriate color and sclera not pale - normal nail bed color and refill Integument - no rash or evidence of trauma - normal turgor Diagnostics: [] Therapeutics: [] Impression: [] Plan: [] Definitive disposition and diagnosis as appropriate pending reevaluation and r eview of above. no pain Pain Score (Numeric/FACES): 0 - Related Data Allergies Allergy/AdvReac Type Severity Reaction Status Date / Time No Known Allergies Allergy Verified 12/28/19 23:57 Home Meds: Home Meds Acetaminophen [Tylenol] 325 mg PO BID PRN #30 tablet 12/22/19 [Rx] Albuterol/Ipratropium [Combivent Respimat] 4 gm IH TID PRN #1 aer.w.adap 12/22/19 [Rx] dexAMETHasone [Dexamethasone] 6 mg PO DAILY #8 tab 12/22/19 [Rx] guaiFENesin [Mucinex] 600 mg PO TID PRN #30 tab.er 12/22/19 [Rx] Azithromycin [Zithromax] 250 mg PO DAILY #6 tab 12/29/19 [Rx] Past Medical History HEENT History: Reports: Other (See Below) Other HEENT History: wears glasses Cardiovascular History: Reports: None Respiratory History: Reports: None Gastrointestinal History: Reports: None Genitourinary History: Reports: None Musculoskeletal History: Reports: Arthritis, Back Pain, Chronic, Fracture Other Musculoskeletal History: hx of fx left wrist and ankles Neurological History: Reports: Concussion Other Neuro History: pt states TIA in 2019 Psychiatric History: Reports: None Endocrine/Metabolic History: Reports: Obesity/BMI 30+ Hematologic History: Reports: None Immunologic History: Reports: None Oncologic (Cancer) History: Reports: None Dermatologic History: Reports: None - Infectious Disease History Infectious Disease History: Reports: Chicken Pox - Past Surgical History Head Surgeries/Procedures: Reports: None Social & Family History - Family History Family Medical History: Noncontributory - Tobacco Use Tobacco Use Status *Q: Never Tobacco User - Caffeine Use Caffeine Use: Reports: Coffee - Recreational Drug Use Recreational Drug Use: No ED ROS GENERAL - Review of Systems Review Of Systems: Comprehensive ROS is negative, except as noted in HPI. ED EXAM, GENERAL - Physical Exam Exam: See Below Free Text/Narrative:: My physical exam as in the HPI Course - Vital Signs Last Recorded V/S: Last Vital Signs Temp 97.8 F 12/29/19 00:00 Pulse 96 12/29/19 00:00 Resp 20 12/29/19 00:00 BP 131/92 H 12/29/19 00:00 Pulse Ox 97 12/29/19 00:00 - Orders/Labs/Meds Orders: Active Orders 24 hr Category Date Time Status RT Post Treatment Assessment [RC] Click to Edit Care 12/29/19 00:21 Active RT Pre-Treatment Assessment [RC] Click to Edit Care 12/29/19 00:21 Active CXR [Chest 1V Frontal] [CR] Stat Exams 12/29/19 00:20 Taken Meds: Medications Discontinued Medications Generic Name Dose Route Start Last Admin Trade Name Freq PRN Reason Stop Dose Admin Albuterol 18 gm 12/29/19 00:21 12/29/19 00:29 Ventolin Hfa INH 12/29/19 00:22 2 puff NOW STA Administration Dexamethasone 8 mg 12/29/19 00:20 12/29/19 00:27 Dexamethasone IM 12/29/19 00:21 8 mg STAT STA Administration Departure - Departure Time of Disposition: 01:21 Disposition: Home, Self-Care 01 Condition: Good Clinical Impression: Pneumonia - Discharge Information Prescriptions: Azithromycin [Zithromax] 250 mg PO DAILY #6 tab Instructions: Community-Acquired Pneumonia, Adult Referrals: PCP,None [Primary Care Provider] - Forms: ED Department Discharge Additional Instructions: Use the chamber at all times when you use your inhaler every 4 hours as needed Your prescription went to [facility] [address] [place] [address] [place] [address] The following information is given to patients seen in the emergency department who are being discharged to home. This information is to outline your options for follow-up care. We provide all patients seen in our emergency department with a follow-up referral. The need for follow-up, as well as the timing and circumstances, are variable depending upon the specifics of your emergency department visit. If you don't have a primary care physician on staff, we will provide you with a referral. We always advise you to contact your personal physician following an emergency department visit to inform them of the circumstance of the visit and for follow-up with them and/or the need for any referrals to a consulting specialist. The emergency department will also refer you to a specialist when appropriate. This referral assures that you have the opportunity for follow-up care with a specialist. All of these measure are taken in an effort to provide you with optimal care, which includes your follow-up. Under all circumstances we always encourage you to contact your private physician who remains a resource for coordinating your care. When calling for follow-up care, please make the office aware that this follow-up is from your recent emergency room visit. If for any reason you are refused follow-up, please contact the [facility] Department at and asked to speak to the emergency department charge nurse. Sepsis Event Note (ED) - Evaluation Sepsis Screening Result: No Definite Risk - Focused Exam Vital Signs: Vital Signs Temp Pulse Resp BP Pulse Ox 12/29/19 00:00 97.8 F 96 20 131/92 H 97 - My Orders Last 24 Hours: My Active Orders 12/29/19 00:20 CXR [Chest 1V Frontal] [CR] Stat 12/29/19 00:21 RT Post Treatment Assessment [RC] Click to Edit RT Pre-Treatment Assessment [RC] Click to Edit - Assessment/Plan Last 24 Hours: My Active Orders 12/29/19 00:20 CXR [Chest 1V Frontal] [CR] Stat 12/29/19 00:21 RT Post Treatment Assessment [RC] Click to Edit RT Pre-Treatment Assessment [RC] Click to Edit
--- NOTE | 2019-12-29 01:27 | CR ---
HISTORY: Shortness of breath. Positive COVID-19. COMPARISON: CT of the chest from 12/19/2019. FINDINGS: A portable erect AP view of the chest was obtained at 0039 hours. There is minimal patchy infiltrate in the right perihilar and right infrahilar lung, improved compared to the patchy infiltrates seen on the previous CT of the chest, and consistent with improving COVID-19 infection. The rest of the chest is clear. The heart remains normal in size. The mediastinum is normal in appearance. The osseous structures are normal in appearance for the patient`s age. IMPRESSION: Minimal patchy right perihilar and infrahilar infiltrates, consistent with improving COVID-19 infection, improved compared to the previous CT of 12/19/2019. No other infiltrates seen in the chest. Dictated by Ryan Mena MD @ Dec 29 2019 1:24AM Signed by Dr. Ryan Mena @ Dec 29 2019 1:26AM
== END 2019-12-29 01:40 | disposition home or self-care (01) ==
LOC: MW.ED 23:26
DX: J18.9 Pneumonia, unspecified organism (principal); E66.9 Obesity, unspecified; Z68.32 Body mass index [BMI] 32.0-32.9, adult; Z79.899 Other long term (current) drug therapy
CPT/HCPCS: 71045; 96372; 99284; J1100; J3535-GY

== ENCOUNTER 2021-02-16 23:07 | Emergency (ER) | payer SELFPAY ==
[2021-02-17] MEDS ORDERED: Sodium Chloride 0.9% 10 ML Syringe FLUSH PRN (00:13)
[2021-02-17] MEDS ORDERED: Sodium Chloride 0.9% 2.5 ML Syringe FLUSH PRN (00:13)
--- NOTE | 2021-02-17 00:19 | EDM.PDOC ---
ED HPI GENERAL MEDICAL PROBLEM - General Chief Complaint: Abdominal Pain Stated Complaint: STOMACH PAIN Time Seen by Provider: 02/16/21 23:24 - History of Present Illness INITIAL COMMENTS - FREE TEXT/NARRATIVE: History of present illness: [] Patient is 6 years of severe abdominal pain. Is worse when he lays down. It is associated with constipation for several days. Now he feels the urge to defecate after he is drunk 6 glasses of water. His urine flow has been normal. He does not have fever or chills. He is not vomiting. Review of systems: As per history of present illness and below otherwise all systems reviewed and negative. Past medical history: As per history of present illness and as reviewed below otherwise noncontributory. Surgical history: As per history of present illness and as reviewed below otherwise noncontributory. Social history: No reported history of drug or alcohol abuse. Family history: As per history of present illness and as reviewed below otherwise noncontributory. Physical exam: Constitutional - well developed, well-nourished and in no acute distress HEENT - normocephalic, no evidence of trauma - external nose and mouth normal - no mass in neck and no JVD - mucosae moist EYES - full EOM, PERRL, no icterus - no evidence of inflammation, injection, or drainage Respiratory - no respiratory distress, equal bilateral expansion, lungs clear to auscultation and no abnormal lung sounds Cardiovascular - Regular Rhythm with S1 and S2 appreciated and no murmur, gallop or rub. GI - abdomen soft without distension or organomegaly - normal bowel sounds - no guard or rebound Musculoskeletal no gross deformity of long bones or joints - no tenderness, swelling or edema Neurologic - Alert and oriented times four - CN II-XII grossly intact - motor sensory and coordination symmetrically normal Psychiatric - appropriate mood and affect with normal thought content Hematologic - No petechiae or purpura - mucosa appropriate color and sclera not pale - normal nail bed color and refill Integument - no rash or evidence of trauma - normal turgor Diagnostics: [] Therapeutics: [] Impression: [] Plan: [] Definitive disposition and diagnosis as appropriate pending reevaluation and review of above. Rectal Pain Score (Numeric/FACES): 7 - Related Data Allergies Allergy/AdvReac Type Severity Reaction Status Date / Time No Known Allergies Allergy Verified 12/28/19 23:57 Home Meds: Home Meds Acetaminophen [Tylenol] 325 mg PO BID PRN #30 tablet 12/22/19 [Rx] Past Medical History HEENT History: Reports: Other (See Below) Other HEENT History: wears glasses Cardiovascular History: Reports: None Respiratory History: Reports: None Gastrointestinal History: Reports: None Genitourinary History: Reports: None Musculoskeletal History: Reports: Arthritis, Back Pain, Chronic, Fracture Other Musculoskeletal History: hx of fx left wrist and ankles Neurological History: Reports: Concussion, Parkinson's, Other (See Below) Other Neuro History: pt states TIA in 2019 Psychiatric History: Reports: None Endocrine/Metabolic History: Reports: Obesity/BMI 30+ Hematologic History: Reports: None Immunologic History: Reports: None Oncologic (Cancer) History: Reports: None Dermatologic History: Reports: None - Infectious Disease History Infectious Disease History: Reports: Chicken Pox, Measles - Past Surgical History Head Surgeries/Procedures: Reports: None Social & Family History - Family History Family Medical History: No Pertinent Family History - Tobacco Use Tobacco Use Status *Q: Never Tobacco User Second Hand Smoke Exposure: No - Caffeine Use Caffeine Use: Reports: Coffee - Recreational Drug Use Recreational Drug Use: No ED ROS GENERAL - Review of Systems Review Of Systems: Comprehensive ROS is negative, except as noted in HPI. ED EXAM, GENERAL - Physical Exam Exam: See Below Free Text/Narrative:: My physical exam is in the HPI Course - Vital Signs Last Recorded V/S: Last Vital Signs Temp 36.1 C 02/16/21 23:09 Pulse 69 02/17/21 01:26 Resp 15 02/17/21 01:26 BP 142/89 H 02/17/21 01:26 Pulse Ox 99 02/17/21 01:26 - Orders/Labs/Meds Orders: Active Orders 24 hr Category Date Time Status Enema [RC] ASDIRECTED Care 02/17/21 01:57 Active UA W/SAULO RFLX IF INDICATED [URIN] Stat Lab 02/17/21 00:13 Ordered Sodium Chloride 0.9% [Saline Flush] Med 02/17/21 00:13 Active 10 ml FLUSH ASDIRECTED PRN Sodium Chloride 0.9% [Saline Flush] Med 02/17/21 00:13 Active 2.5 ml FLUSH ASDIRECTED PRN Saline Lock Insert [OM.PC] Stat Oth 02/17/21 00:13 Ordered Medication Orders Sodium Chloride (Sodium Chloride 0.9% 10 Ml Syringe) 10 ml FLUSH ASDIRECTED PRN PRN Reason: Keep Vein Open Last Admin: 02/17/21 01:24 Dose: 10 ml Documented by: LORIE Sodium Chloride (Sodium Chloride 0.9% 2.5 Ml Syringe) 2.5 ml FLUSH ASDIRECTED PRN PRN Reason: Keep Vein Open Last Admin: 02/17/21 01:24 Dose: 2.5 ml Documented by: LORIE Labs: Laboratory Tests 02/16/21 02/16/21 Range/Units 23:48 23:48 WBC 7.74 (4.0-11.0) K/uL RBC 4.69 (4.50-5.90) M/uL Hgb 15.6 (13.0-17.0) g/dL Hct 43.3 (38.0-50.0) % MCV 92.3 (80.0-98.0) fL MCH 33.3 H (27.0-32.0) pg MCHC 36.0 (31.0-37.0) g/dL RDW Std Deviation 44.7 (28.0-62.0) fl RDW Coeff of Timothy 13 (11.0-15.0) % Plt Count 141 L (150-400) K/uL MPV 11.80 (7.40-12.00) fL Neut % (Auto) 69.5 (48.0-80.0) % Lymph % (Auto) 21.4 (16.0-40.0) % Fergus % (Auto) 7.8 (0.0-15.0) % Eos % (Auto) 1.0 (0.0-7.0) % Baso % (Auto) 0.3 (0.0-1.5) % Neut # (Auto) 5.4 (1.4-5.7) K/uL Lymph # (Auto) 1.7 (0.6-2.4) K/uL Fergus # (Auto) 0.6 (0.0-0.8) K/uL Eos # (Auto) 0.1 (0.0-0.7) K/uL Baso # (Auto) 0.0 (0.0-0.1) K/uL Nucleated RBC % 0.0 /100WBC Nucleated RBCs # 0 K/uL Sodium 136 (136-148) mmol/L Potassium 3.9 (3.5-5.1) mmol/L Chloride 100 (98-107) mmol/L Carbon Dioxide 27.0 (21.0-32.0) mmol/L BUN 17 (7.0-18.0) mg/dL Creatinine 1.2 (0.8-1.3) mg/dL Est Cr Clr Drug Dosing 72.13 mL/min Estimated GFR (MDRD) > 60.0 ml/min Glucose 108 H (74-106) mg/dL Calcium 9.9 (8.5-10.1) mg/dL Total Bilirubin 1.2 H (0.2-1.0) mg/dL AST 23 (15-37) IU/L ALT 28 (14-63) IU/L Alkaline Phosphatase 56 (46-116) U/L Total Protein 7.9 (6.4-8.2) g/dL Albumin 4.5 (3.4-5.0) g/dL Globulin 3.4 (2.6-4.0) g/dL Albumin/Globulin Ratio 1.3 (0.9-1.6) Lipase 180 (73-393) U/L Meds: Medications Generic Name Dose Route Start Last Admin Trade Name Freq PRN Reason Stop Dose Admin Sodium Chloride 10 ml 02/17/21 00:13 02/17/21 01:24 Sodium Chloride 0.9% 10 Ml Syringe FLUSH 10 ml ASDIRECTED PRN Administration Keep Vein Open Sodium Chloride 2.5 ml 02/17/21 00:13 02/17/21 01:24 Sodium Chloride 0.9% 2.5 Ml Syringe FLUSH 2.5 ml ASDIRECTED PRN Administration Keep Vein Open - Re-Assessments/Exams Free Text/Narrative Re-Assessment/Exam: 02/17/21 00:44 Patient had a rectal exam and he has multiple balls of impacted hard stool. His abdomen is soft after disimpaction. Departure - Departure Time of Disposition: 03:27 Disposition: Home, Self-Care 01 Condition: Good Clinical Impression: Abdominal pain, Constipation - Discharge Information Instructions: Constipation, Adult, Abdominal Pain, Adult, [id number] Referrals: PCP,None [Primary Care Provider] - Forms: ED Department Discharge Additional Instructions: Take a stool softener such as Colace or MiraLAX twice a day with plenty of water. When you feel like you need to go but cannot take senna or Dulcolax or mag citrate [id number]. [facility] [address] [place] [address] [facility] [address] [place] [id number] The following information is given to patients seen in the emergency department who are being discharged to home. This information is to outline your options for follow-up care. We provide all patients seen in our emergency department with a follow-up referral. The need for follow-up, as well as the timing and circumstances, are variable depending upon the specifics of your emergency department visit. If you don't have a primary care physician on staff, we will provide you with a referral. We always advise you to contact your personal physician following an emergency department visit to inform them of the circumstance of the visit and for follow-up with them and/or the need for any referrals to a consulting specialist. The emergency department will also refer you to a specialist when appropriate. This referral assures that you have the opportunity for follow-up care with a specialist. All of these measure are taken in an effort to provide you with optimal care, which includes your follow-up. Under all circumstances we always encourage you to contact your private physician who remains a resource for coordinating your care. When calling for follow-up care, please make the office aware that this follow-up is from your recent emergency room visit. If for any reason you are refused follow-up, please contact the [facility] Emergency Department at and asked to speak to the emergency department charge nurse. Sepsis Event Note (ED) - Evaluation Sepsis Screening Result: No Definite Risk - Focused Exam Vital Signs: Vital Signs Temp Pulse Resp BP Pulse Ox 02/17/21 01:26 69 15 142/89 H 99 02/17/21 00:10 68 15 140/98 H 98 02/16/21 23:09 36.1 C 85 18 150/102 H 99 - My Orders Last 24 Hours: My Active Orders 02/17/21 00:13 UA W/SAULO RFLX IF INDICATED [URIN] Stat Sodium Chloride 0.9% [Saline Flush] 10 ml FLUSH ASDIRECTED PRN Sodium Chloride 0.9% [Saline Flush] 2.5 ml FLUSH ASDIRECTED PRN Saline Lock Insert [OM.PC] Stat 02/17/21 01:57 Enema [RC] ASDIRECTED - Assessment/Plan Last 24 Hours: My Active Orders 02/17/21 00:13 UA W/SAULO RFLX IF INDICATED [URIN] Stat Sodium Chloride 0.9% [Saline Flush] 10 ml FLUSH ASDIRECTED PRN Sodium Chloride 0.9% [Saline Flush] 2.5 ml FLUSH ASDIRECTED PRN Saline Lock Insert [OM.PC] Stat 02/17/21 01:57 Enema [RC] ASDIRECTED
[2021-02-17 00:37] LABS: BLOOD UREA NITROGEN,BUN 17 mg/dL (7.0-18.0); CHLORIDE,CL 100 mmol/L (98-107); GLUCOSE RANDOM 108 mg/dL (74-106); LIPASE 180 U/L (73-393); POTASSIUM,K 3.9 mmol/L (3.5-5.1); SODIUM,NA 136 mmol/L (136-148)
== END 2021-02-17 04:31 | disposition home or self-care (01) ==
LOC: MW.ED 23:07
DX: K59.00 Constipation, unspecified (principal); E66.9 Obesity, unspecified; Z68.30 Body mass index [BMI] 30.0-30.9, adult; Z86.73 Personal history of transient ischemic attack (TIA), and cerebral infarction without residual deficits
CPT/HCPCS: 36415; 80053; 83690; 85025; 99284

== ENCOUNTER 2021-07-24 09:41 | Emergency (ER) | payer BC, OTHER ==
[2021-07-24] MEDS ORDERED: Sodium Chloride 0.9% 2.5 ML Syringe FLUSH PRN (10:15)
[2021-07-24] MEDS ORDERED: Sodium Chloride 0.9% 10 ML Syringe FLUSH PRN (10:15)
[2021-07-24] MEDS ORDERED: Ketorolac 30 MG/ML SDV IVPUSH STA (11:07)
[2021-07-24] MEDS ORDERED: Lactated Ringers 1,000 ML IV STA (11:07)
[2021-07-24 11:23] LABS: BLOOD UREA NITROGEN,BUN 17 mg/dL (7.0-18.0); CARBON DIOXIDE,CO2 21.8 mmol/L (21.0-32.0); CHLORIDE,CL 106 mmol/L (98-107); GLUCOSE RANDOM 95 mg/dL (74-106); POTASSIUM,K 4.1 mmol/L (3.5-5.1); SODIUM,NA 141 mmol/L (136-148)
== END 2021-07-24 13:29 | disposition home or self-care (01) ==
LOC: MW.ED 09:41
DX: R00.1 Bradycardia, unspecified (principal); M54.50 Low back pain, unspecified; E66.9 Obesity, unspecified; Z68.30 Body mass index [BMI] 30.0-30.9, adult; Z86.16 Personal history of COVID-19; Z79.899 Other long term (current) drug therapy
CPT/HCPCS: 36415; 71045; 74176; 80048; 85025; 93005; 99285; J1885; J7120

== ENCOUNTER 2024-02-10 06:50 | Emergency (ER) | payer MEDICARE ==
[2024-02-10] MEDS ORDERED: Sodium Chloride 0.9% 10 ML Syringe FLUSH PRN (07:13)
[2024-02-10] MEDS ORDERED: Sodium Chloride 0.9% 2.5 ML Syringe FLUSH PRN (07:13)
[2024-02-10] MEDS: Ketorolac 30 MG/ML SDV IVPUSH ONE (07:38)
[2024-02-10 07:40] LABS: BASOPHILS ABSOLUTE AUTO 0.02 K/uL (0.00-0.20); BASOPHILS PERCENT AUTO 0.3 % (0.0-1.0); EOSINOPHILS ABSOLUTE AUTO 0.14 K/uL (0.00-0.45); EOSINOPHILS PERCENT AUTO 2.4 % (0.0-6.0); HEMATOCRIT 42.9 % (42.0-52.0); HEMOGLOBIN 15.5 g/dL (14.0-18.0); IMMATURE GRAN ABSOLUTE AUTO 0.02 K/uL (0.00-0.05); IMMATURE GRAN PERCENT AUTO 0.3 % (0.0-0.4); LYMPHOCYTES ABSOLUTE AUTO 1.51 K/uL (1.00-4.80); LYMPHOCYTES PERCENT AUTO 26.2 % (24.0-44.0); MEAN CORPUSCULAR HEMOGLOBIN 32.9 pg (28.0-32.0); MEAN CORPUSCULAR HGB CONC 36.1 g/dL (32.0-36.0); MEAN CORPUSCULAR VOLUME 91.1 fL (83.0-99.0); MEAN PLATELET VOLUME 10.6 fL (9.4-12.4); MONOCYTES ABSOLUTE AUTO 0.76 K/uL (0.00-0.80); MONOCYTES PERCENT AUTO 13.2 % (0.0-8.0); NEUTROPHILS ABSOLUTE AUTO 3.31 K/uL (1.80-7.70); NEUTROPHILS PERCENT AUTO 57.6 % (41.0-71.0); PLATELET COUNT,PLT 144 K/uL (150-400); RED BLOOD CELL COUNT 4.71 M/uL (4.52-5.90); WHITE BLOOD CELL COUNT,WBC 5.76 K/uL (3.9-11.3)
[2024-02-10] MEDS: Lidocaine 4% 1 each Patch TOP ONE (07:40)
[2024-02-10 08:08] LABS: LACTIC ACID 0.7 mmol/L (0.4-2.0)
[2024-02-10 08:15] LABS: A/G RATIO 1.1 (0.9-1.6); ALBUMIN 3.9 g/dL (3.4-5.0); CALCIUM 8.8 mg/dL (8.5-10.1); CARBON DIOXIDE,CO2 25.9 mmol/L (21.0-32.0); CREATININE 1.3 mg/dL (0.8-1.3); EST CRCL DRUG DOSING (CG) 64.02 mL/min; POTASSIUM,K 4.3 mmol/L (3.5-5.1); PROTEIN TOTAL,TP 7.6 g/dL (6.4-8.2)
[2024-02-10 08:52] LABS: APPEARANCE,URINE CLEAR; BILIRUBIN,URINE NEGATIVE (NEGATIVE); COLOR,URINE YELLOW; GLUCOSE,URINE NEGATIVE (NEGATIVE); KETONES,URINE NEGATIVE (NEGATIVE); LEUKOCYTE ESTERASE,URINE TRACE (NEGATIVE); NITRITE,URINE NEGATIVE (NEGATIVE); OCCULT BLOOD,URINE NEGATIVE (NEGATIVE); PROTEIN,URINE NEGATIVE (NEGATIVE)
[2024-02-10 09:06] LABS: BACTERIA,URINE NOT SEEN (NEGATIVE); EPITHELIAL CELLS,URINE RARE (NONE-FEW); RBC,URINE NONE SEEN (0-2/HPF); WBC,URINE 0-1 (0-5/HPF)
[2024-02-10] MEDS: Iopamidol 755 MG/ML 500 ML Multipack Bottle IVPUSH STA (09:18)
[2024-02-10] MEDS: Morphine 4 MG/ML Syringe IVPUSH ONE (10:10)
== END 2024-02-10 12:04 | disposition home or self-care (01) ==
LOC: MW.ED 06:50
DX: R10.32 Left lower quadrant pain (principal); M79.604 Pain in right leg; R06.02 Shortness of breath; R79.89 Other specified abnormal findings of blood chemistry; E66.9 Obesity, unspecified; Z79.899 Other long term (current) drug therapy; Z75.8 Other problems related to medical facilities and other health care; Z68.35 Body mass index [BMI] 35.0-35.9, adult
CPT/HCPCS: 36415; 71275; 74174; 80053; 81001; 83605; 83690; 84484; 85025; 93005; 96374; 96375; 99284; A9270; J1885; J2270; Q9967